=== PATIENT | female | born 1960 | race Caucasian/White ===

== ENCOUNTER → 2021-07-30 10:03 | Outpatient (CLI) | payer MEDICARE, MEDICAID, SELFPAY ==
--- NOTE | 2021-07-30 | DI.RAD.S_ITS ---
PROCEDURE: FL JOINT INJECTION LARGE LT INDICATIONS: Unilateral primary osteoarthritis, left hip COMPARISON: None. TECHNIQUE: The indications, alternatives, benefits, risks, and complications of the procedure were explained to the patient. Written informed consent was obtained and placed in the chart. The patient was placed in an appropriate position on the fluoroscopy table, and a site was chosen for percutaneous access under fluoroscopic guidance. The site was prepped and draped in a sterile fashion. Local anesthetic was administered using a 1% lidocaine solution. A hypodermic or spinal needle was then used to access the symptomatic joint. Intra-articular location of the needle tip was confirmed by injecting a small amount of contrast, followed by steroid administration. The needle was then withdrawn, and a bandage applied to the puncture site. FINDINGS: Joint injected: Left hip Medications injected: 1 mL of 40 mg/mL Kenalog and 3 mL 0.5% Ropivacaine mixture. Patient's pain before injection: 3 out of 10. Patient's pain after injection: 0 out of 10. Complications: None. IMPRESSION: Successful fluoroscopically guided administration of steroid and anaesthetic solution into the left hip joint. Dictated by: Essence Love MD, PhD on 07/30/2021 at 11:49 Approved by: Essence Love MD, PhD on 07/30/2021 at 11:50
== END ==
PROVIDERS: PCP Registered Nurse; Referring Provider Counselor Mental Health; Visit Provider Counselor Mental Health
DX: M16.12 Unilateral primary osteoarthritis, left hip (principal)
CPT/HCPCS: 20610; 77002

== ENCOUNTER → 2021-09-15 13:44 | Outpatient (CLI) | payer MEDICARE, MEDICAID, SELFPAY ==
--- NOTE | 2021-09-15 13:50 | DI.RAD.S_ITS ---
PROCEDURE: XR LUMBAR SPINE MIN 4V INDICATIONS: BACK PAIN TECHNIQUE: 5 views of the lumbar spine were acquired, including bilateral oblique views. COMPARISON: None. FINDINGS: Bones: 5 nonrib-bearing vertebrae are present. Grade 1 anterolisthesis of L5 on S1. Disc space height loss at L5-S1. Small vertebral body osteophytes. No vertebral body compression fractures. No suspicious bony lesions. Right hip arthroplasty. Moderate to severe joint space narrowing at the left hip. Soft tissues: Overlying bowel gas pattern is normal. No suspicious soft tissue calcifications. Oblique images: Bilateral L5 pars defect. IMPRESSION: Bilateral L5 pars defect. Grade 1 anterolisthesis. Mild degenerative change elsewhere in the lumbar spine. Moderate to severe left hip DJD. Dictated by: Crow Cronin M.D. on 09/15/2021 at 14:21 Approved by: Crow Cronin M.D. on 09/15/2021 at 14:24
== END ==
PROVIDERS: PCP Registered Nurse; Referring Provider Physical Medicine & Rehabilitation; Visit Provider Physical Medicine & Rehabilitation
DX: M43.17 Spondylolisthesis, lumbosacral region (principal); M47.816 Spondylosis without myelopathy or radiculopathy, lumbar region; M16.0 Bilateral primary osteoarthritis of hip; M54.9 Dorsalgia, unspecified; E66.01 Morbid (severe) obesity due to excess calories; Z68.41 Body mass index [BMI] 40.0-44.9, adult; Z72.0 Tobacco use; Z96.641 Presence of right artificial hip joint
CPT/HCPCS: 72110; 99214

== ENCOUNTER → 2021-10-01 10:24 | Outpatient (CLI) | payer MEDICARE, MEDICAID, SELFPAY ==
--- NOTE | 2021-10-01 | DI.CT.S_ITS ---
PROCEDURE: CT LUMBAR SPINE WO CON INDICATIONS: SPONDYLOLISTHESIS, LUMBAR REGION TECHNIQUE: Helical axial CT of the lumbar spine was obtained without contrast and reformatted in multiple planes utilizing a Robospine protocol. Radiation dose reduction was achieved utilizing automated exposure control and/or adjustment of the dose parameters according to patient's size. COMPARISON: None. FINDINGS: Image quality: Excellent. Bones: There is normal bony alignment. No acute vertebral body compression fractures. No suspicious lytic or blastic bony lesions. Bilateral L5 pars defects noted. At L3-4, there is disc space narrowing and circumferential disc bulge with mild central stenosis. Mild left and right foraminal stenosis noted as well. At L4-5, disc height is preserved. Circumferential disc bulge results in mild central stenosis. Mild facet joint hypertrophy present. Moderate bilateral foraminal stenosis. At L5-S1, there is grade 2 anterior spondylolisthesis. Severe disc space narrowing, degenerative endplate sclerosis and vacuum disc phenomena noted. No central stenosis. Severe left and right foraminal stenosis present. At the remaining levels, no central or foraminal stenosis present. IMPRESSION: 1. Grade 2 isthmic spondylolisthesis at L5-S1 results in severe bilateral foraminal stenosis. 2. Degenerative disc disease and arthropathy results in moderate bilateral foraminal stenosis at L4-5 Approved by: Raj Fernandez M.D. on 10/01/2021 at 11:29 PATIENT NAME: NAJMA ESCAMILLAKatherine : 1960 EXAM DATE: 10/01/2021 10:36 ORD. : FLORIDALMA DUBOIS M.D. CC: MODALITY: CT PATIENT TYPE: Out CONTRAST MEDIA: STATION ID: [id number] FLUORO TIME: PATIENT NAME: FAVIAN ESCAMILLAISAURO Chin : 1960 EXAM DATE: 10/01/2021 10:36 ORD. DRKatherine: FLORIDALMA DUBOIS M.D. CC: MODALITY: CT PATIENT TYPE: Out CONTRAST MEDIA: STATION ID: [id number] FLUORO TIME:
[2021-10-01 11:28] LABS: Add Manual Diff / Slide Review NO; Basophils Absolute Auto 0 /uL (0-100); Basophils Percent Auto 0.5 % (0-2); Eosinophils Absolute Auto 100 /uL (0-450); Eosinophils Percent Auto 1.6 % (2-4); Hematocrit 42.8 % (36-46); Hemoglobin 13.8 g/dL (12.0-16.0); Lymphocytes Absolute Auto 2400 /uL (1100-4500); Lymphocytes Percent Auto 27.1 % (25-40); Mean Corpuscular HGB Conc 32.2 % (30-36); Mean Corpuscular Hemoglobin 25.8 PG (26-34); Monocytes Absolute Auto 500 /uL (0-900); Monocytes Percent Auto 5.5 % (3-14); Neutrophils Absolute Auto 5700 /uL (1500-7000); Neutrophils Percent Auto 65.3 % (50-75); Platelet Count 310 X10^3/uL (150-400); Red Blood Cell Count 5.35 X10^6/uL (4.0-5.2); Red Cell Distribution Width 17.7 % (11.6-14.8); White Blood Cell Count 8.8 X10^3/uL (4.5-11.0)
[2021-10-01 11:47] LABS: Hemoglobin A1C% w Est Avg Glu 5.7 % (4.0-6.0)
[2021-10-01 12:22] LABS: BUN Creatinine Ratio 12.9 (6-22); Blood Urea Nitrogen 12 mg/dL (7-17); Calcium 9.2 mg/dL (8.4-10.2); Carbon Dioxide 30 mmol/L (22-32); Chloride 102 mmol/L (98-107); Estimated Glomerular Filt Rate > 60.0 mL/min (>60); Glucose 103 mg/dL (80-110); HEMOLYSIS < 15 (0-50); Potassium 4.6 mmol/L (3.4-5.1); Sodium 138 mmol/L (137-145)
== END ==
PROVIDERS: PCP Registered Nurse; Referring Provider Orthopaedic Surgery Orthopaedic Surgery of the Spine; Visit Provider Orthopaedic Surgery Orthopaedic Surgery of the Spine
DX: Z01.818 Encounter for other preprocedural examination (principal); M43.17 Spondylolisthesis, lumbosacral region; M51.36 Other intervertebral disc degeneration, lumbar region; Z01.812 Encounter for preprocedural laboratory examination; M47.816 Spondylosis without myelopathy or radiculopathy, lumbar region; R73.9 Hyperglycemia, unspecified
CPT/HCPCS: 36415; 72131; 80048; 83036; 85025; 93005

== ENCOUNTER → 2021-11-21 10:52 | Outpatient (CLI) | payer MEDICARE, MEDICAID, SELFPAY ==
[2021-11-21 12:13] LABS: COVID19 -Nasal RAPID Negative (Negative)
== END ==
PROVIDERS: PCP Registered Nurse; Visit Provider Family Medicine Sleep Medicine
DX: Z20.822 Contact with and (suspected) exposure to COVID-19 (principal)
CPT/HCPCS: 87635; C9803

== ENCOUNTER 2021-11-24 10:14 | Inpatient (IN) | payer MEDICARE, MEDICAID, SELFPAY ==
[2021-11-17 08:44] VITALS: BMI 44.1
[2021-11-24] VITALS (18 sets, daily range): BP systolic 94–136; BP diastolic 45–81; PULSE 70–79; RESP 14–20; TEMP 31.7–36.8; O2SAT 91–929; BMI 44.1; BMI 44.6
--- NOTE | 2021-11-24 | DI.RAD.S_ITS ---
PROCEDURE: XR LUMBAR SPINE 2-3V INDICATIONS: L4-5 L5-S1 TLIF TECHNIQUE: 3 views of the lumbar spine were acquired. COMPARISON: [facility], , XR LUMBAR SPINE MIN 4V, 09/15/2021, 13:40. FINDINGS: 2 submitted images demonstrate posterior surgical hardware extending from the L4 through the L5-S1 level which are in expected positions. L5-S1 intervertebral disc spacer also in expected position. IMPRESSION: Posterior fixation hardware at the L3-L4 and L4-L5 level as well as L5-S1 intervertebral spacer. Dictated by: Estevan Ayers [facility] Interpreted: Benjamin Howe MD on 11/24/2021 at 17:03 Approved by: Benjamin Howe M.D. on 11/24/2021 at 18:28
[2021-11-24] MEDS: ACETAMINOPHEN 325 MG TABLET 975 MG PO (10:48)
[2021-11-24] MEDS: LACTATED RINGERS 1,000 ML 42 ML IV ×2 (10:51→15:46)
--- NOTE | 2021-11-24 12:20 | PM.PREOP ---
Pre-operative Note COVID-19 COVID-19 status: Negative Result date/Date tested (Pos, Neg/Pending): 11/23/21 Criteria for continued procedure: Expected advancement of disease process, Possibility delay results in more complex future surgery or treatment, Increased loss of function, Continuing or worsening of significant or severe pain, Deterioration of the patient's condition or overall health and Delay expected to result in less-positive ultimate med/surg outcome Interval Note History & Physical reviewed/Exam performed by Physician: Yes Changes to H&P: No
[2021-11-24] MEDS: ALBUTEROL/IPRATROPIUM 3 ML AMPUL INH (13:01)
--- NOTE | 2021-11-24 13:15 | SUR.OPER ---
Addendum entered by Payton Reyes R.N. 11/24/21 14:11: Gel pads applied between patient's pannus and spinal table rods bilaterally. Original Note: Prone on spine table, head in foam head support, padded chest and pelvic supports, gel pad at knees, lower legs supported by pillows; nipples, genitalia and toes free of pressure, arms secured on foam padded arm boards at <90 degrees abduction. Tape over blanket at thigh secured to table.
[2021-11-24] MEDS: CEFAZOLIN 2 GM/20 ML SYRINGE 3 GM IV (13:57)
[2021-11-24] MEDS: BUPIVACAINE 0.25% (PF) 30 ML, EPINEPHrine 0.3 MG INJ (14:27)
[2021-11-24] MEDS: BUPIVACAINE LIPOSOME 266 MG/20 ML VIAL INJ (16:47)
--- NOTE | 2021-11-24 16:59 | PM.OP.1 ---
Operative Date/Time/Diagnoses Date of procedure: 11/24/21 Time of procedure: 12:30 Pre-op diagnosis: 1. L5-S1 spondylolisthesis 2. L4-5, L5-S1 spinal stenosis Post-op diagnosis: same Procedure & Clinicians Procedure: 1. L5-S1 Postero-lateral and posterior interbody fusion 2. L5-S1 interbody cage placement. 3. L4-5 posterolateral fusion 4. L4-5, L5-S1 decompressive laminectomy with bilateral facetecomies 5. L4-5, L5-S1 Posterior segmental instrumentation 6. Primrose of bone marrow from iliac crest 7. Utilization of microsurgical technique and operating microscope 8. Utilization of robotic assisted navigation Same procedure as scheduled: Yes Indications: Patient has been having chronic back pain and worsening lumbar radiculopathy. Patient failed multiple conservative management with worsening pain weakness and numbness in her lower extremity. Patient has been having difficulty performing activity of daily living. After discussing risks benefits of treatment options, patient elected proceed with surgery. Surgeon: Valdemar Jimenez [facility] Winder: Awilda Nevarez Click Yes if Unassisted: No Anesthesia Type: General Operative Notes Closure Type: primary Specimen(s): none sent Prosthetic devices, grafts, tissues, transplants, or devices: Globus CREO MIS screws, Rise cages Applied: catheter Estimated Blood Loss (mL): 100 Blood products transfused: none Procedure in detail: Patient was seen in the preoperative area. Risks and benefits of the surgery was discussed with the patient. Informed consent was obtained from the patient and placed in the chart. Surgical site was marked. Patient was taken to the operative room. General anesthesia was administered. Prophylactic antibiotic was given to the patient less than 30 min before the incision was made. Patient was placed into a prone position on the Chaitanya table. Patient's back was then prepped and draped in the sterile fashion. Time-out was performed at this time. After patient was prepped and draped, patient's PSIS was palpated and marked bilaterally. Small 1 cm incision was made over the PSIS for placement of the reference probes. Two trocar was placed into the PSIS 1 on each side. The reference probe was attached to the trocar of the reference apparatus. At this time the C-arm imaging was used to confirm AP and lateral of L4-L5, L5-S1 vertebrae and merged the C-arm imaging using the [employer] robotic navigation system with the CT of the lumbar spine. After successful merging was completed and confirmed, skin marker was used to sarah beth out the skin incision using the [employer] robotic arm. Bilateral incision was made at this time. Pre templated trajectory was used and guided using the [employer] robotic navigation system for bilateral L4, L5, S1 pedicle screw placement. This was done by using the robotic arm to guide the high-speed bur to make a cortical entry point. Next a drill was placed also using the robotic arm and guided using the navigation system drilling partially through bilateral L4, L5 and S1 pedicles. Next L4, L5, S1 pedicle screws it was pre templated and measured was placed onto the power drivers license examiner and inserted into the pedicles bilaterally. After all 6 screws were placed C-arm imaging was taken of both AP and lateral to confirm the placement. Excellent placement of the screws were confirmed and a matched precisely with the pre planned screw placement using the navigation system. MARs retractor was inserted using [employer]oft[employer] guidence. Globus MARS retractors was placed inside the incision and docked onto the L4 and L5 lamina. Using microsurgical technique and operating microscope, a L4, L5 laminectomy and L4-5, L5-S1 facetectomy was performed using a Kerrison rongeur. Patient was found have severe lateral recess and neural foramen stenosis which was fully decompressed after the laminectomy facetectomy. More than 75% of the facets were removed during the process of decompression rendering L4-5, L5-S1 level grossly unstable and required a fusion procedure at the same time. The disc space at L5-S1 was identified, and a total diskectomy was performed at L5-S1 level. The endplates were decorticated using a rasp and shaver. The total diskectomy and decortication was performed at L5-S1 level in order to to accomplish a L5-S1 fusion. The local bone from the laminectomy and facetectomy was saved for local bone grafting. After the total diskectomy and decortication was completed, Trifecta bone graft material was combined with local bone that was harvested earlier. At this time, a separate skin is incision was made over the iliac crest. A Jamshidi needle was inserted into the iliac crest through a separate skin incision. 5 cc of bone marrow aspiration was obtained through the separate skin incision using a Jamshidi needle from the iliac crest. The bone marrow aspiration was combined with local bone and the Trifecta bone grafting material. The bone grafting material was placed into the L5-S1 interbody space along with a expandable cage. The cage was expanded to its maximum height using the torque limiting screwdriver. The disc preparation as well as the cage insertion were also performed under navigation guidance. After the cage was placed, AP and lateral C-arm imaging was taken to confirm placement of the cage and excellent position was confirmed. Globus MARS retractor was inserted and docked onto the L4-5, L5-S1 posterolateral gutter on the right side. Using the power drill, posterior-lateral decortication was performed at L4-5, L5-S1 level until bleeding cortical bone was identified. The remaining bone grafting material was placed into the L4-5, L5-S1 posterior lateral gutter he order to accomplish posterolateral fusion at the L4-5, L5-S1 level. At this time the tulips were attached to the L4, L5, S1 pedicle screw shanks. After measuring the length of the rods, they were inserted into the tulips of the pedicle screws and locked in place using locking caps and torque limiting screwdriver bilaterally. Total 6 caps and 2 titanium rods was used in order to complete the posterior instrumentation construct. The build in reducing threads were used on the towers for the pedicle screws. The L5-S1 spondylolisthesis was appropriately reduced and stabilized using the hardware combination. After all the hardware was placed, and confirmed with AP and lateral C-arm imaging, the wound was then irrigated with sterile normal saline and packed with Ray-Karl gauze for 3 min to accomplish hemostasis. After the gauze was removed the deep fascia was closed with #1 Vicryl suture. The subcutaneous layer was closed with 2-0 Vicryl. The skin was closed with skin debbie. Patient tolerated the procedure well. There were no complications. Neuro monitoring system was used to monitor patient's neurologic status throughout entire procedure. There was no disturbance of the neural monitoring signals throughout the case. Due to patient's chronic COPD, he was recommended by Anesthesia patient to be admitted to the ICU for close monitoring of respiratory status. Patient was stable and had no medical or surgical issues throughout entire procedure. Therapy is consulted to give patient respiratory treatment during hospital stay. Complications: none Post-operative Condition: stable Disposition: PACU Plan for aftercare: Admit to inpatient hospital
[2021-11-24] MEDS: ALBUTEROL 2.5 MG/3 ML NEB (ADULT) INH (17:43)
[2021-11-24] MEDS: HYDROMORPHONE 2 MG INJ IV (17:55)
[2021-11-24] MEDS: hydrOXYzine 50 MG/ML INJ 25 MG IM (17:55)
[2021-11-24] MEDS: OXYCODONE IR 5 MG TABLET PO (18:01)
--- NOTE | 2021-11-24 20:31 | DI.RAD.S_ITS ---
PROCEDURE: XR CHEST 1V INDICATIONS: Shortness of breath post-op TECHNIQUE: One view of the chest was acquired. COMPARISON: [facility], CT, CT LUMBAR SPINE WO CON, 10/01/2021, 10:36. FINDINGS: Surgical changes and devices: Left pacemaker with right atrial and right ventricular leads. Lungs and pleura: Prominent interstitial markings. Hazy opacity at the left lung base. Low lung volumes. No pleural effusions or pneumothorax. Mediastinum: Mediastinal contours appear normal. Heart size is at the upper limits of normal. Bones and chest wall: No suspicious bony lesions. Overlying soft tissues appear unremarkable. IMPRESSION: Low lung volumes. Prominent interstitial markings and hazy opacity at the left lung base. Favor atelectasis. Pulmonary edema could have a similar appearance. Dictated by: Crow Cronin M.D. on 11/24/2021 at 23:20 Approved by: Crow Cronin M.D. on 11/24/2021 at 23:22
[2021-11-24] MEDS: SODIUM CHLORIDE 0.9% 1,000 ML 100 ML IV (20:33)
[2021-11-24 22:02] LABS: PCO2 ABG 71.2 mmHg (35-45)
[2021-11-24 22:03] LABS: HCO3 ABG 31 mmol/L (22-26); Oxygen Saturation ABG 96 % (95-100); PO2 ABG 100 mmHg (80-100); TCO2 ABG 33 mmol/L (21-31); pH ABG 7.24 (7.35-7.45)
[2021-11-24 22:04] LABS: Fractionated Inspired Oxygen 58
--- NOTE | 2021-11-24 22:20 | P.TELICUCN_ITS ---
History of Present Illness Consult details Chief complaint: TLIF *OPB* :: This patient was seen via real time interactive two-way audiovisual telecommunication. Narrative: Patient is a 61F with a PMH of COPD (not on home O2), Tobacco Abuse, Obesity and Spinal stenosis who underwent a spinal stenosis today with Orthopedic Surgery. No complications per Operative report. Patient was transferred to the ICU following surgery due to her history of COPD. Arrived on NC but per RN, desaturations into the 70s thus was placed on a NRB. In PACU, prior to ICU arrival, patient received Oxy and Dilaudid. RN noted that bedside ETCO2 in the 50s-60s. Per patient, she reports no pain at this time. No chest pain or shortness of breath. Limited history, patient appears slightly altered on exam. [facility] Medical History Chronic back pain COPD (chronic obstructive pulmonary disease) CRPS (complex regional pain syndrome) Current every day smoker Degenerative joint disease (DJD) of hip Morbid obesity due to excess calories Pacemaker (07/29/17) Rheumatoid arthritis Spondylolisthesis at L5-S1 level Tobacco abuse Surgical History History of ankle surgery (07/2017) History of bilateral tubal ligation History of hip surgery (03/2016) History of shoulder surgery (02/2004) History of total right hip arthroplasty Family History Father Congestive heart failure Mother Cancer Social History (Updated 09/08/21 @ 12:27 by Janette Beaulieu LPN) household members: friend(s) Smoking Status: Current every day smoker alcohol intake: current Current Medications Current Medications Medications: Home Medications duloxetine 30 mg capsule,delayed release 30 mg PO BID cap 09/15/21 [History Confirmed 11/24/21] gabapentin 100 mg capsule 100 mg PO BID cap 09/15/21 [History Confirmed 11/24/21] tizanidine 4 mg capsule 4 mg PO BEDTIME 09/15/21 [History Confirmed 11/24/21] fluticasone fur. 100 mcg-umeclid 62.5 mcg-vilant 25 mcg inhalat.powder (Trelegy Ellipta) 1 inh INHALATION DAILY 11/17/21 [History Confirmed 11/24/21] ibuprofen 800 mg tablet 800 mg PO BID 11/17/21 [History Confirmed 11/24/21] Visit Medications (administered) Generic Name Dose Route Start Last Admin Trade Name Manjeet PRN Reason Stop Dose Admin Docusate Sodium 100 mg 11/24/21 21:00 11/24/21 21:25 Docusate 100 Mg Capsule PO Not Given BID MIKEL Duloxetine HCl 30 mg 11/24/21 21:00 11/24/21 21:26 Duloxetine 30 Mg Capsule PO Not Given BID MIKEL Gabapentin 100 mg 11/24/21 21:00 11/24/21 21:26 Gabapentin 100 Mg Capsule PO Not Given BID MIKEL Sodium Chloride 1,000 mls @ 100 mls/hr 11/24/21 19:40 11/24/21 20:33 Normal Saline 0.9% IV 100 mls/hr CONT MIKEL Administration Sennosides 17.2 mg 11/24/21 21:00 11/24/21 21:26 Sennosides 8.6 Mg Tablet PO Not Given BEDTIME MIKEL Tizanidine HCl 4 mg 11/24/21 21:00 11/24/21 21:26 Tizanidine 4 Mg Tablet PO Not Given BEDTIME MIKEL Exam Vital Signs (past 8 hours): - 11/24/21 17:20 11/24/21 17:25 11/24/21 17:30 Temperature 96.9 F L Pulse Rate 71 72 70 Respiratory Rate 18 17 18 Blood Pressure 122/71 115/59 L 122/66 Pulse Oximetry 92 95 95 11/24/21 17:35 11/24/21 17:40 11/24/21 17:50 Temperature Pulse Rate 72 70 73 Respiratory Rate 18 15 18 Blood Pressure 123/65 116/45 L 122/66 Pulse Oximetry 94 95 91 11/24/21 18:05 11/24/21 18:20 11/24/21 18:35 Temperature 96.7 F L 97.2 F L Pulse Rate 70 72 73 Respiratory Rate 15 15 19 Blood Pressure 113/63 136/65 123/61 Pulse Oximetry 91 93 929 H 11/24/21 19:05 11/24/21 19:26 11/24/21 21:15 Temperature 97.6 F Pulse Rate 76 79 Respiratory Rate 16 18 Blood Pressure 131/60 126/81 105/58 L Pulse Oximetry 92 92 Fraction of Inspired Oxygen 50 Oxygen Delivery Method Simple Mask Oxygen Flow Rate 6 Narrative Exam Narrative: Limited exam given Tele-evaluation Const Other: Awake but sleepy Resp Other: Mild tachypnea, shallow resparations. RT noted coarse breath sounds bilaterally but no miguelito wheezing. Cardio Other: RRR. No significant extremity edema. Neuro Other: Able to follow commands but appears sleepy. Able to range UE and LE. RN notes neurovascularly intact in LE. Objective Labs Labs: Laboratory Results - last 24 hr 11/24/21 20:55 ABG pH 7.24 L* ABG pCO2 71.2 H* ABG pO2 100 ABG HCO3 31 H ABG Total CO2 33 H ABG O2 Saturation 96 ABG Base Excess 3.0 H FiO2 58 Assessment & Plan Assessment & Plan narrative: 61F with COPD, Tobacco Abuse admitted following spinal fusion for respiratory monitoring 1. Acute (on chronic? Hypoxic, Hypercarbic Respiratory Failure. History of COPD Previous labs with elevated bicarb, suspect chronic CO2 retention. ABG in [place] with pH 7.23 and acute hypercarbia - likely due to atelectasis, positioning, opiods/poor resp effort. - Start BiPAP now. Target O2 sat 88-92%. Target TVs of 6-8 cc/kg of IBW. Repeat ABG 1 hour after BiPAP initiated - PRN nebs. Continue home nebs. - Position with HOB elevated - Cautious with sedatives/opiods given slight AMS - Stat CXR 2. Acute Encephalopathy Most likely due to opiods, hypercarbia. Patient is able to follow commands - Cautious with opiods, sedatives 3. History of Spinal Stenosis s/p Spinal Fusion - Orthopedic Surgery recs 4. Prophylaxis - SCDs. DVT PPx when appropriate from Ortho perspective Would restart diet in morning if mental status improved, off BiPAP and then hold mIVFs. Time Spent With Patient Critical Care time: I spent a total of [] minutes of critical care time on this patient's care today; this time is exclusive of procedural time.
[2021-11-24] MEDS: CEFAZOLIN 2 GM/20 ML SYRINGE IV (23:06)
[2021-11-25] VITALS (8 sets, daily range): BP systolic 93–120; BP diastolic 51–62; PULSE 77–87; RESP 20–33; TEMP 36.5–37.1; O2SAT 87–93
[2021-11-25] MEDS: NICOTINE 14 PATCH 14 MG TOP ×2 (02:29→13:35)
--- NOTE | 2021-11-25 04:39 | PC.NURSE ---
Arrived in ICU 227 @ 1930 per bed from PACU awake and alert MAEW with equal strength. Papa pedal pulses bounding. Small amount of bright red blood noted on surgical dressing. Initally O2 per simple face mask @ 6L. VSS. Pt oriented to environment. Shortly after arrival, she became somnilent and needed prompting to take deep breaths. After contacting teleintensivist, Pt placed on bipap. Pt tolerated bipap for approximately 1 hr then refused to reapply. Placed on nasal cannula with etco2 monitor with goal of SPO2 88-92. She has been fully awake and alert since taking off the bipap. Surgical dressing saturated with BRB, reinforced with ABD Dressing. Moves side to side independently, instructed not to twist torso.
[2021-11-25 04:56] LABS: Hematocrit 36.5 % (36-46); Hemoglobin 11.8 g/dL (12.0-16.0)
[2021-11-25] MEDS: CEFAZOLIN 2 GM/20 ML SYRINGE IV (06:45)
[2021-11-25] MEDS: SODIUM CHLORIDE 0.9% 250 ML 21 ML IV (06:45)
--- NOTE | 2021-11-25 07:31 | P.PN_ITS ---
Subjective Subjective Date Patient Seen: 11/25/21 Time Patient Seen: 07:32 Interval history: Pain since pain is moderate. Denies fever chills. No nausea vomiting. Exam Vital Signs (past 8 hours): - 11/25/21 02:00 Temperature 97.7 F Pulse Rate 77 Respiratory Rate 21 Blood Pressure 105/57 L Pulse Oximetry 93 Fraction of Inspired Oxygen 50 Oxygen Delivery Method Nasal Cannula,BiPAP Oxygen Flow Rate 2 Narrative Exam Narrative: 61-year-old female resting comfortably in bed in no apparent distress. Scant drainage on the dressing. Motor functions intact bilateral lower extremities. Sensation grossly intact to light touch bilateral lower extremities. Const General: cooperative Nutritional Appearance: obese (BMI 44) Orientation: alert and oriented x3 Resp Effort & Inspection: normal respiratory effort and able to speak in complete sentences Objective Imaging Chest x-ray: Radiologist's impression: Chest x-ray for November 24, 2021 per radiology report shows low lung volumes. Prominent interstitial markings and he COPD city at the lung base on the left. Favor atelectasis. Pulmonary edema could have a similar appearance. Labs Result Diagrams: 11/25/21 04:40 Labs: Laboratory Results - last 24 hr 11/24/21 11/25/21 20:55 04:40 Hgb 11.8 L Hct 36.5 ABG pH 7.24 L* ABG pCO2 71.2 H* ABG pO2 100 ABG HCO3 31 H ABG Total CO2 33 H ABG O2 Saturation 96 ABG Base Excess 3.0 H FiO2 58 PFSH Medical History Chronic back pain COPD (chronic obstructive pulmonary disease) CRPS (complex regional pain syndrome) Current every day smoker Degenerative joint disease (DJD) of hip Morbid obesity due to excess calories Pacemaker (07/29/17) Rheumatoid arthritis Spondylolisthesis at L5-S1 level Tobacco abuse Surgical History History of ankle surgery (07/2017) History of bilateral tubal ligation History of hip surgery (03/2016) History of shoulder surgery (02/2004) History of total right hip arthroplasty Family History Father Congestive heart failure Mother Cancer Social History household members: friend(s) Smoking Status: Current every day smoker alcohol intake: current Assessment & Plan Post-op Postoperative Procedures: Procedures Operation Date: 11/24/21 12:15 Actual Procedure Side Surgeon p L4-5, L5-S1 TLIF w. posterior instrumentation - Robot Valdemar Jimenez MD Postoperative day: 1 Postoperative status narrative: Stable status post L5-S1 fusion Tele marketing mgr consulted yesterday evening due to patient desaturation into the 70s Postoperative plan: routine post-op care and ambulate Postoperative plan narrative: Mobilize with physical therapy, limit bending, twisting, lifting Multimodal pain management with caution using opioids secondary to desaturation Tele marketing mgr following for acute possibly on chronic respiratory failure with history of COPD, acute encephalopathy -patient started on BiPAP with target O2 saturation 88-92%, as needed nebs cautious with sedative/opiates Disposition to be determined Quality VTE Deep Vein Thrombosis/Pulmonary Embolism Present on Admission: Yes
[2021-11-25] MEDS: DOCUSATE 100 MG CAPSULE PO ×2 (08:58→20:27)
[2021-11-25] MEDS: DULOXETINE 30 MG CAPSULE PO ×2 (08:58→20:27)
[2021-11-25] MEDS: OXYCODONE IR 5 MG TABLET 10 MG PO ×3 (08:58→20:27)
[2021-11-25] MEDS: GABAPENTIN 100 MG CAPSULE PO ×2 (08:58→20:27)
--- NOTE | 2021-11-25 09:09 | P.TELICUPN_ITS ---
Subjective Subjective :: This patient was seen via real time interactive two-way audiovisual telecommunication. VBG pending, no events opvernight. Current Medications Current Medications Medications: Home Medications duloxetine 30 mg capsule,delayed release 30 mg PO BID cap 09/15/21 [History C onfirmed 11/24/21] gabapentin 100 mg capsule 100 mg PO BID cap 09/15/21 [History Confirmed 11/24/21] tizanidine 4 mg capsule 4 mg PO BEDTIME 09/15/21 [History Confirmed 11/24/21] fluticasone fur. 100 mcg-umeclid 62.5 mcg-vilant 25 mcg inhalat.powder (Trelegy Ellipta) 1 inh INHALATION DAILY 11/17/21 [History Confirmed 11/24/21] ibuprofen 800 mg tablet 800 mg PO BID 11/17/21 [History Confirmed 11/24/21] Visit Medications (administered) Generic Name Dose Route Start Last Admin Trade Name Freq PRN Reason Stop Dose Admin Docusate Sodium 100 mg 11/24/21 21:00 11/25/21 08:58 Docusate 100 Mg Capsule PO 100 mg BID MIKEL Administration Duloxetine HCl 30 mg 11/24/21 21:00 11/25/21 08:58 Duloxetine 30 Mg Capsule PO 30 mg BID MIKEL Administration Gabapentin 100 mg 11/24/21 21:00 11/25/21 08:58 Gabapentin 100 Mg Capsule PO 100 mg BID MIKEL Administration Sodium Chloride 1,000 mls @ 100 mls/hr 11/24/21 19:40 11/25/21 06:28 Normal Saline 0.9% IV 0 mls/hr CONT MIKEL Infusion Sodium Chloride 250 mls @ 21 mls/hr 11/25/21 06:41 11/25/21 06:45 Normal Saline 0.9% IV 21 mls/hr Q24H PRN Administration Flush Non-Formulary Medication 1 inhalation 11/25/21 09:00 11/25/21 09:02 [id number] [Trelegy Ellipta] INH Not Given DAILY MIKEL Oxycodone HCl 10 mg 11/24/21 19:40 11/25/21 08:58 Oxycodone Ir 5 Mg Tablet PO 10 mg Q3HR PRN Administration Pain, Severe (7-10) Sennosides 17.2 mg 11/24/21 21:00 11/24/21 21:26 Sennosides 8.6 Mg Tablet PO Not Given BEDTIME MIKEL Tizanidine HCl 4 mg 11/24/21 21:00 11/24/21 21:26 Tizanidine 4 Mg Tablet PO Not Given BEDTIME MIKEL Objective Labs Result Diagrams: 11/25/21 04:40 Labs: Laboratory Results - last 24 hr 11/24/21 11/25/21 20:55 04:40 Hgb 11.8 L Hct 36.5 ABG pH 7.24 L* ABG pCO2 71.2 H* ABG pO2 100 ABG HCO3 31 H ABG Total CO2 33 H ABG O2 Saturation 96 ABG Base Excess 3.0 H FiO2 58 Exam Vital Signs (past 8 hours): - 11/25/21 02:00 Temperature 97.7 F Pulse Rate 77 Respiratory Rate 21 Blood Pressure 105/57 L Pulse Oximetry 93 Fraction of Inspired Oxygen 50 Oxygen Delivery Method Nasal Cannula,BiPAP Oxygen Flow Rate 2 Narrative Exam Narrative: surrogate for exam is primary team Quality TeleICU VTE Deep Vein Thrombosis/Pulmonary Embolism Present on Admission: Yes Assessment & Plan Assessment & Plan narrative: 1. Acute (on chronic? Hypoxic, Hypercarbic Respiratory Failure. History of COPD Previous labs with elevated bicarb, suspect chronic CO2 retention.? ABG in cardale with pH 7.23 and acute hypercarbia - likely due to atelectasis, positioning, opiods/poor resp effort. - bipap qhs, may need more often depending on vbg - PRN nebs. Continue home nebs. - Position with HOB elevated - Cautious with sedatives/opiods given slight AMS 2. Acute Encephalopathy Most likely due to opiods, hypercarbia. 3. History of Spinal Stenosis s/p Spinal Fusion - Orthopedic Surgery recs 4. Prophylaxis - SCDs. DVT PPx when appropriate from Ortho perspective Time Spent With Patient Critical Care time: I spent a total of [] minutes of critical care time on this patient's care today; this time is exclusive of procedural time.
--- NOTE | 2021-11-25 10:22 | PT.IIE ---
Current Diagnoses Spondylolisthesis, lumbar region (11/24/21) Spinal stenosis, lumbar region with neurogenic claudication (11/24/21) Surgery Performed Operation Date: 11/24/21 12:15 Actual Procedures p L4-5, L5-S1 TLIF w. posterior instrumentation - Robot - Valdemar Jimenez MD Medical History (Last Reviewed 11/25/21 @ 07:33 by Nacho Nails PA-C) Chronic back pain COPD (chronic obstructive pulmonary disease) CRPS (complex regional pain syndrome) Current every day smoker Degenerative joint disease (DJD) of hip Morbid obesity due to excess calories Pacemaker (07/29/17) Rheumatoid arthritis Spondylolisthesis at L5-S1 level Tobacco abuse Physical Therapy Inpatient Evaluation/Re-Eval M1 PT/OT-IP Prior Functional Status Start: 11/25/21 09:03 Freq: NEEDED Status: Active Protocol: Document 11/25/21 10:22 AW (Rec: 11/25/21 10:57 AW [id number]) Medical Review Prior Functional Status Medical History Reviewed Yes Communication WNL. Pt is an effective verbal communicator. Mobility and Gait Pt uses a FWW for household mobility and limited distances in the community. She is limited primarily by pain and weakness. Pt has a power scooter she uses to go check the mail. Activities of Daily Living and IADL's Pt has been requiring assist to don shoes and socks. She needs assist to get in and out of the shower. She typically rides a motorcycle for transportation but has been unable for several months due to pain. Pt's sister assists with IADL's. Prior Functional Level (Other details) PMH includes BMI 44, COPD, R MATTHEW, R ankle fracture. Social History Household Members friend(s) Living Arrangements Mobile home Number of Floors (Floors) One Floor Number of Stairs To Enter/Railing? Ramped entry Home Environment Standard Height Toilet,Tub/ Shower Home Equipment Front Wheel Walker,Power Wheelchair/Scooter,Bedside Commode,Raised Toilet Seat w/ Armrests,Shower Seat without Backrest,Hand Held Shower,Long Handled Shoe Horn,Supply Manager Employment Status Retired Additional Social History Comment Pt lives with her sister, Gely, who typically helps with IADL's. However, her sister is in [place] with their mother who is very ill. Her return date is unknown. Pt has a supportive neice but she has a full-time job and small children. M2 PT-IP Current Condition Start: 11/25/21 09:03 Freq: NEEDED Status: Active Protocol: Document 11/25/21 10:22 AW (Rec: 11/25/21 10:57 AW [id number]) Physical Therapy Current Condition Current Condition Evaluation Date 11/25/21 Treatment Diagnosis s/p L4-5 L5-S1 TLIF; difficulty in walking Onset Date 11/24/21 M3 PT-IP Subjective Start: 11/25/21 09:03 Freq: NEEDED Status: Active Protocol: Document 11/25/21 10:22 AW (Rec: 11/25/21 10:57 AW [id number]) Subjective Physical Therapy Visit Type Type Initial Evaluation Visit Start Time 09:45 Visit Stop Time 10:22 Total Visit Minutes 37 Physical Therapy Visit Comments Patient Comments Pt is willing to participate with PT Patient Goals Pt is open to rehab options. Therapy Pain Assessment Pain When Pain Assessed During Mobility Pain Present Pain Present Pain Reported Location Lower Back Intensity 4 Scale Used 4/10 at rest; unchanged with mobility Pain Management Techniques Apply Cold,Re-positioning, Timing of Activity with Medications M4 PT-IP Mobility and Gait Start: 11/25/21 09:03 Freq: NEEDED Status: Active Protocol: Document 11/25/21 10:22 AW (Rec: 11/25/21 11:10 AW [id number]) PT-Bed Mobility Assessment Rolling Type of Rolling Log Rolling,Roll to Right Level of Assist Moderate Assistance,1 Person Assistance Supine to Sit Supine to Sit Moderate Assistance,1 Person Assistance,Bedrails Scooting Scooting to Edge of Bed Contact Guard Assistance PT-Transfer Assessment Sit to and From Stand Sit to and from Stand Minimal Assistance,1 Person Assistance,Use of Upper Extremities Equipment Transfer Assistive Device Gait Belt,Front Wheeled Walker Orthotic/Prosthetic Devices or Brace: No Transfers Transfer Destination Chair Transfer Technique Stand Step Pivot Transfer Ability Level of Assist Minimal Assistance,1 Person Assistance,Use of Upper Extremities Comments Mobility Comments Pt was lying in bed as PT arrived. BP 120/62 HR 85 SpO2 93% on 3L/min O2 via NC. PT educated pt on post op precautions and log roll technique. Pt needed mod assist for log roll to sitting EOB. Min A to stand and used FWW to transfer to chair 3 feet away from bedside. Mobility was limited at this encounter by NC and monitoring due to hypercapneic presentation. Pt was able to position herself on the chair and was left with OT for further assesment. Gait Assessment Gait Gait Assistance Required: Minimum Assistance,1 Person Assist Distance (Feet) 3 Assistive Devices Assistive Device Gait Belt,Front Wheeled Walker Orthotic/Prosthetic Devices or Brace: No Gait Deviations General Gait Pattern Antalgic,Decreased Stride Length,Decreased Feet Clearance Factors Limiting Gait Function Factors Limiting Gait Function Decreased Activity Tolerance, Decreased Strength,Limited Range of Motion,Pain,Poor Balance Comments Gait Comments Steps taken during transfer only. Stair Climbing Assessment Comments Stair Climbing Comments Not assessed. Pt has ramped entry at home. PT-Balance Assessment Sitting Balance and Reactions Static Sitting Balance Ability Good Dynamic Sitting Balance Ability Good Standing Balance and Reactions Static Standing Balance Ability Good Dynamic Standing Balance Ability Fair Device Used FWW M5 PT-IP Objective Assessments Start: 11/25/21 09:03 Freq: NEEDED Status: Active Protocol: Document 11/25/21 10:22 AW (Rec: 11/25/21 11:10 AW [id number]) Orientation Orientation/Cognition Level of Alertness Alert Orientation Name,Day of Week,Place, Situation Language Function Ability No Deficits Noted Safety Awareness Understands Safety Issues Memory Description No Deficits Noted Gross Range of Motion Lower Extremity ROM Assessment Within Functional Limits Strength Lower Extremity Strength Assessment Bilaterally Impaired Comments Strength Comments Grossly 4/5 BLE Sensation Assessment Sensation Gross Sensation WNL Muscle Tone Muscle Tone WNL Yes M6 PT-IP Treatment Start: 11/25/21 09:03 Freq: NEEDED Status: Active Protocol: Document 11/25/21 10:22 AW (Rec: 11/25/21 11:10 AW [id number]) Physical Therapy Treatment Education Education Provided Precautions,Weight Bearing Status,Post-Op Packet,Safety Other Treatments Other Treatment Performed Educated pt extensively on post op precautions and PT plan of care. M7 PT-IP Assessment and Plan Start: 11/25/21 09:03 Freq: NEEDED Status: Active Protocol: Document 11/25/21 10:22 AW (Rec: 11/25/21 11:10 AW [id number]) PT Summary Assessment and Plan Potential Rehabilitation Potential Good Status of Condition at Evaluation Evolving Summary Impairments Pain,ROM,Strength,Balance,Bed Mobility,Transfers,Gait, Activity Tolerance Assessment Summary Jyothi is a 61 yo woman seen on POD1 following L4-5 L5-S1 TLIF. She uses a FWW for household and limited community mobility at baseline . She has COPD and has been hypercapneic since surgery. She required mod assist for bed mobility and min assist for transfer at this assessment. She does not have help at home at this time due to her sister being away with their mother for unforseen health concerns. Depending on progress and/or ability to line up help at home, pt may need SNF rehab vs home with assist and home health PT. Will continue to assess. Goals Bed Mobility Goal Standby Assistance Transfer Goal Standby Assistance,Front Wheeled Walker Gait Goal Standby Assistance,Front Wheel Walker Gait Distance 75 Days to Meet Goals 8 Frequency of Treatment Frequency Of Treatment Twice a Day Treatment Plan Physical Therapy Treatment Plan Bed Mobility Training,Transfer Training,Gait Training, Therapeutic Exercise,Balance Retraining,Post Op Education, Discharge Planning,Hot or Cold Pack,Neuromuscular Re-ed Other Recommendations and Next Treatment ask RN to lengthen NC/ Focus monitoring line for mobility; mobility as tolerated Precautions Lumbar Precautions Log Roll,No Twisting,Limit Bending,Lifting Restriction of 10 lbs,Gait Belt above Incisional Area Recommendations To Nursing Amount of Assist Needed 1 Person Assist Discharge Recommendations PT Discharge Recommendations Home with Assistance,Home with / Assist Available,Home Health,SNF Rehab,Home vs SNF Transportation Needs at Discharge Private Vehicle,Wheelchair/ Cabulance
[2021-11-25 10:28] LABS: PCO2 VBG 31.6 mmHg (45-50); pH VBG 7.54 (7.33-7.43)
[2021-11-25 10:29] LABS: HCO3 VBG 27 mmol/L (23-28); Oxygen Saturation VBG 100 % (70-75); PO2 VBG 167 mmHg (35-45); Total CO2 VBG 28 mmol/L (24-29)
--- NOTE | 2021-11-25 10:38 | OT.IP.EVAL ---
Current Diagnoses Spondylolisthesis, lumbar region (11/24/21) Spinal stenosis, lumbar region with neurogenic claudication (11/24/21) Surgery Performed Operation Date: 11/24/21 12:15 Actual Procedures p L4-5, L5-S1 TLIF w. posterior instrumentation - Robot - Valdemar Jimenez MD Past Medical History (Last Reviewed 11/25/21 @ 07:33 by Nacho Nails PA-C) Chronic back pain COPD (chronic obstructive pulmonary disease) CRPS (complex regional pain syndrome) Current every day smoker Degenerative joint disease (DJD) of hip History of ankle surgery (07/2017) History of bilateral tubal ligation History of hip surgery (03/2016) History of shoulder surgery (02/2004) History of total right hip arthroplasty Morbid obesity due to excess calories Pacemaker (07/29/17) Rheumatoid arthritis Spondylolisthesis at L5-S1 level Tobacco abuse Surgical History (Last Reviewed 11/25/21 @ 07:33 by Nacho Nails PA-C) History of ankle surgery (07/2017) History of bilateral tubal ligation History of hip surgery (03/2016) History of shoulder surgery (02/2004) History of total right hip arthroplasty Occupational Therapy Inpatient Evaluation/Re-Eval M1 PT/OT-IP Prior Functional Status Start: 11/25/21 09:03 Freq: NEEDED Status: Active Protocol: Document 11/25/21 10:22 AW (Rec: 11/25/21 10:57 AW [id number]) Medical Review Prior Functional Status Medical History Reviewed Yes Communication WNL. Pt is an effective verbal communicator. Mobility and Gait Pt uses a FWW for household mobility and limited distances in the community. She is limited primarily by pain and weakness. Pt has a power scooter she uses to go check the mail. Activities of Daily Living and IADL's Pt has been requiring assist to don shoes and socks. She needs assist to get in and out of the shower. She typically rides a motorcycle for transportation but has been unable for several months due to pain. Pt's sister assists with IADL's. Prior Functional Level (Other details) PMH includes BMI 44, COPD, R MATTHEW, R ankle fracture. Social History Household Members friend(s) Living Arrangements Mobile home Number of Floors (Floors) One Floor Number of Stairs To Enter/Railing? Ramped entry Home Environment Standard Height Toilet,Tub/ Shower Home Equipment Front Wheel Walker,Power Wheelchair/Scooter,Bedside Commode,Raised Toilet Seat w/ Armrests,Shower Seat without Backrest,Hand Held Shower,Long Handled Shoe Horn,Cutlet Maker Pork Employment Status Retired Additional Social History Comment Pt lives with her sister, Gely, who typically helps with IADL's. However, her sister is in [place] with their mother who is very ill. Her return date is unknown. Pt has a supportive neice but she has a full-time job and small children. M2 OT-IP Current Condition Start: 11/25/21 12:32 Freq: Status: Active Protocol: Document 11/25/21 09:50 [facility] (Rec: 11/25/21 12:48 [facility] [id number]) Occupational Therapy Current Condition Current Condition Evaluation Date 11/25/21 Treatment Diagnosis S/p L4-5, L5-S1 TLIF Diagnosis Onset Date 11/24/21 Post Operative Precautions Lumbar Precautions Log Roll,No Twisting,Limit Bending,Lifting Restriction of 10 lbs,Gait Belt above Incisional Area M3 OT- IP Subjective and Pain Start: 11/25/21 12:32 Freq: Status: Active Protocol: Document 11/25/21 09:50 [facility] (Rec: 11/25/21 12:48 [facility] [id number]) OT- Subjective Occupational Therapy Visit Type Type Initial Evaluation Visit Start Time 09:50 Visit Stop Time 10:38 Total Visit Minutes 48 Occupational Therapy Visit Comments Patient Comments Pt agreed to get up for OT eval. Patient/Caregiver Goals TO go to skilled rehab. OT Pain Assessment Pain When Pain Assessed At Rest Pain Present Pain Present Pain Reported Location Lower Back Intensity 2 Scale Used Numeric (0 - 10) M4 OT- IP ADL's Start: 11/25/21 12:32 Freq: Status: Active Protocol: Document 11/25/21 09:50 [facility] (Rec: 11/25/21 12:48 [facility] [id number]) OT [id number] Comments OT Self-Feeding Comments NOt at meal time. OT ADL-Grooming General Evaluation Grooming Ability Standby Assistance Areas Needing Assistance Retrieving/Set-up of Grooming Items OT ADL-Oral Care General Eval Oral Care Ability Standby Assistance Areas of Assistance Retrieving/Set-Up of Items Comments Oral Care Comments Able to do from the recliner. Educated if standing would be best to spit into a cup to best follow her back precautions. Pt states usually brushes her teeth in the shower. OT ADL-Dressing General Eval Lower Body Dressing Ability Maximum Assistance Comments OT Dressing Comments Able to practice use of shelf drier operator and sock aid for LB dressing needs. OT ADL-Toileting Comments OT Toileting Comments Vivar in place, able to show pt toilet paper aid and talked about bidet /wipes to help increase ease and independence to wipe. OT ADL-Bathing Comments OT Bathing Comments NOt performed. M5 OT- IP IADL's Start: 11/25/21 12:32 Freq: Status: Active Protocol: Document 11/25/21 09:50 [facility] (Rec: 11/25/21 12:48 [facility] [id number]) OT-Instrumental Activities of Daily Living Deficits IADL Deficits Identified Deficits Home Safety Awareness Awareness of Need for Assistance at Home Good Awareness Ability to Problem Solve Emergency Able to Problem Solve Situations Meal Preparation Meal Preparation Caregiver Provides Assist Float Remover Float Remover Caregiver Provides Assist M6 OT- IP Functional Cognition Start: 11/25/21 12:32 Freq: Status: Active Protocol: Document 11/25/21 09:50 [facility] (Rec: 11/25/21 12:48 [facility] [id number]) Cognitive Factors Limiting Selfcare Function Cognitive Ability Level of Alertness Alert Patient Orientation Name,Place,Situation Ability to Follow Commands Able to Follow One Step Commands Cognitive Comments Cognitive Assessment Comments Pt needing initial cues to recall her precautions and education of using the shelf drier operator and sock aid. Pt will benefit from more practice. OT- Vision and Hearing OT- Hearing Assessment OT- Hearing Assessment WFL OT- Vision Assessment Visual Acuity Glasses For Reading M7 OT- IP Mobility and Balance Start: 11/25/21 12:32 Freq: Status: Active Protocol: Document 11/25/21 09:50 [facility] (Rec: 11/25/21 12:48 [facility] [id number]) OT- Bed Mobility Assessment Rolling Type of Rolling Roll to Right Level of Assistance Moderate Assistance Supine to Sit Supine to Sit Assist Moderate Assistance OT-Transfer Assessment Sit to and From Stand Sit to and from Stand Minimal Assistance Transfers Transfer Ability Minimal Assistance Technique Transfer Destination Bed,Chair Devices Transfer Assistive Devices Gait Belt,Front Wheeled Walker Comments Mobility Comments MODA to help get up from supine and ROB with FWW. Only able to transfer at this time due to limited length of hospital tubing. OT- Balance Assessment Sitting Balance and Reactions Static Sitting Balance Ability Good Standing Balance and Reactions Static Standing Balance Ability Fair Comments Other Balance Tests/Deviations/Treatment Pt on HiFLow and took off the : O2 for grooming needs and O2 dropped to 82%. M8 OT- IP Objective Assessments Start: 11/25/21 12:32 Freq: Status: Active Protocol: Document 11/25/21 09:50 [facility] (Rec: 11/25/21 12:48 [facility] [id number]) OT-Muscle Tone Assessment Muscle Tone WNL Yes M9 OT- IP Assessment and Plan Start: 11/25/21 12:32 Freq: Status: Active Protocol: Document 11/25/21 09:50 [facility] (Rec: 11/25/21 12:48 [facility] [id number]) OT Summary Assessment and Plan Potential Rehabilitation Potential Good Analytic Complexity at Evaluation Moderate Summary OT Impairments Pain,Strength,Balance, Functional Mobility,Grooming, Dressing,Toileting,Bathing, Toilet Transfers,Shower Transfers,Activity Tolerance Progress Towards Goals Slow Progress due to Medical Issues Assessment Summary Pt MOD complexity and main barriers are decreased activity tolerance and now on O2, pt will need one person assist for all needs. Pt would greatly benefit from skilled rehab prior to going home in order to get stronger, practice LB equipment for ADl needs. Pt's sister not available to assist anymore as in [place] with their ill mother. Therefore pt needs to be independent for all needs prior to going home. Goals Grooming Goal Independent Dressing Goal Independent Toileting Goal Independent Bathing Goal Independent Toilet Transfer Goal Independent Shower Transfer Goal Independent Patient/Caregiver Education Goal Demonstrate Post-Op Precautions,Demonstrate Energy Conservation and Pacing Days to Meet Goals 15 Frequency of Treatment Frequency Of Treatment Once a Day Treatment Plan OT Treatment Plan ADL Training,Functional Mobility,Patient/Family Education,Discharge Planning Other Treatment Recommendations and Next Stand at sink for grooming Treatment Focus needs with FWW. Discharge Recommendations OT Discharge Recommendations SNF Rehab Transportation Needs at Discharge Wheelchair/Cabulance
--- NOTE | 2021-11-25 13:27 | CM.DANOTE ---
DCP: Case received, EMR reviewed and met with patient. Introduced self and role. Was able to obtain information regarding patient's baseline activity level prior to surgery, and care needs as well. DCP assessment completed with information currently available. Patient is a 61 year old female who admitted yesterday morning to the care of the orthopedic team. PCP: Dr. Martin. Payer: confirmed: Medicare/Medicaid. Patient came to the hospital via private vehicle secondary to having a surgical procedure. Patient had L5-S1 fusion. Patient has history of spinal stenosis. Met with patient in her room. She just finished working with Elia Hunter. She was sitting up in her chair, she had on CPAP. Confirmed that she resides in [place], on [address]. She lives alone. Originally, her sister, Gely Laureano was supposed to assist her, but her mother became ill, and sister can't assist. Patient at her baseline, uses a walker, and does not drive. Her sister has been taking her to appointments. According to P.T. notes, patient does have a power scooter that she uses for short distances. Spoke to patient. She is hoping she can go to rehab, her first preference is [facility]. Confirmed that she is inpatient as of yesterday, and has Medicare. Spoke to Jeanie at [facility], and faxed her the referral. They have beds. Sent referral also to Kimmie at [facility] in case [facility] falls through. Have not yet asked her about vaccination status. P: DCP to continue to follow and work on alf. [facility], and [facility] is reviewing. She would be eligable for alf by , 11-27. Elizabeth Voss, RN/Plant Puller Discharge Planning/Care Management Advanced directive, confirm from FAMILY Start: 11/24/21 22:31 Freq: Q24H Status: Active Protocol: Document 11/24/21 22:45 CW (Rec: 11/24/21 22:47 CW [id number]) Advance Directive, confirm on record Time 22:46 Person contacted patient Copy received No Copy received No Advanced directive available on record No CM Discharge Assessment Start: 11/25/21 13:21 Freq: Status: Active Protocol: Document 11/25/21 13:21 VM (Rec: 11/25/21 13:27 VM [id number]) Discharge Planning Assessment Assigned Manuscripts Curator Elizabeth Voss, MONICA/Plant Puller Advance Directives? No Advance Directives on File No History Provided By Patient,Medical Record Prior Living Arrangements Mobile home Household Members friend(s) Type of transporation used prior to Relies on Others admit Comment Her sister takes her to appointments. Independent with ADL's Yes Is patient alert and oriented? Yes Needs Assistance With Home Chores / Shopping Caregiver for Another No DME Already Rented / Owned FWW / Walker Patient/Family Preference Care Home Facility Barriers to Discharge Yes Comment Sister is caring for patient's mother, she was originally going to stay with patient. Discharge Plan Care Home Facility Transportation Arrangement Facility Referrals Initiated Care Home Whiteboard Updated in Patient Room with Yes name and ext. # of Manuscripts Curator Review Status In Process Next Review Type Continued Stay Review Pre-Anesthesia Assessment Start: 11/17/21 08:44 Freq: Status: Active Protocol: Document 11/17/21 08:44 CAB (Rec: 11/17/21 13:02 CAB [id number]) Pre-Anesthesia Assessment PAC Comment Pt would like a nicotine patch while inpatient PFTs @ [facility] 11/10/21 in surgery folder for dos Patient Information Reviewed Via Phone Assessment Assessment Completed With Patient H&P Completed Within 30 Days Yes Diagnostic Results BMP/CMP,CBC Comment COVID screen @ 11/21/21 Primary Care Provider Isela Martin Medical Clearance Received Yes Seen Specialist in Last 12 Months Yes Specialist Seen Financial Services Sales Representative,Orthopedist Comment PCP clearance 11/13/21 to surgery folder for dos Primary Language Amharic Pai Gow Manager Required No Height 5 ft 8 in Weight 290 lb Body Mass Index (BMI) 44.1 Hearing Ability Normal Visual Assist None Dentition Type Partial- Lower Barriers to Learning None Hx Anesthesia Reactions No Hx Family Anesthesia Reaction No Hx Malignant Hyperthermia No Hx Blood Transfusions No Anesthesia Review Requested Yes: Surgeon requested re: COPD, current smoker Additional comment Two anesthesia reviews for this patient scanned and in surgery folder dos alcohol intake current alcohol intake frequency holidays/special occasions only Smoking Status Current every day smoker Tobacco type cigarettes Smoking packs per day 1 Pain Present Pain Reported Musculoskeletal Symptoms Abnormal Gait,Back Pain, Difficulty Walking,Limited Range of Motion,Muscle Weakness,Numbness,Radiating Pain into Limb,Tingling History of Falling (Recent or History of No ) Patient is completely paralyzed or No completely immobile Prosthesis or Orthotic Device Cane,Front Wheel Walker Mental Status Oriented to own ability Is patient on oxygen? No Does patient have CHAVIRA/SOB Yes: Pt states due to pain Hx Sleep Apnea No Comment Pulmonary function tests in surgery folder Currently Taking a Beta Julienne No Can You Climb a Flight of Stairs Without No SOB Hx SOB Yes: Pt states due to pain, deconditioning Hx Syncope or Dizziness Yes: Pacemaker implanted 2017 Anti-Coagulant Therapy No Has a Financial Services Sales Representative Yes: [facility] [phone] Hx Pacemaker/ICD Yes: Pacer form to surgery folder for dos Pacemaker Rep Required? No Cardiac Clearance Received Yes Comment Cardiac records to surgery folder for dos Diet Type At Home Regular dysphagia No Urinary Catheter Present No Hx Urinary Self Catheterization No Diabetes No HgbA1C 5.7 Date 10/01/21 Patient No Lactating No Hx Drug Resistant Organism No Presence of External or Internal Medical Yes: Right hip/shoulder/ankle Devices Have you had any close contact with No someone diagnosed with COVID-19? Received a COVID vaccine? No Marital Status Single Lives With friend(s) Prior Living Arrangements Mobile home Number of Floors (Floors) One Floor Does the Patient Have Assistance After No: Pt lives with friends but Surgery does not have care at DC set up Patient Discharge Plan Description Return Home Comment Pt advised 2-3 day length of stay per surgeon Feels Safe in Current Environment Yes Been Physically Hurt or Threatened By a No Person in Current Environment Do you have thoughts of harming yourself None or others? Are you currently considering suicide? No Do you have a plan to hurt yourself or No Plan others? Do You Have Any Spiritual Beliefs That No May Affect Your HC Choices? Do You Have Any Cultural Practices That No May Affect Your HC Choices? Comment Jason Who Can We Speak to About Patient's Care Family, friends Identifying Code for Release of Patient Declines to issue Information Health Care Proxy/Next of Kin Gely Jamespkins (sister and brother in-law) Health Care Proxy Phone Number Gely: [phone] Pat: Emergency Contact Name Gely Laureano (sister and brother in-law) Emergency Contact Phone Number Gely: [phone] Pat: Advance Directives? No Power of Cray Fishing Hand No PAC Instructions Durable medical equipment, Medications to take/avoid, Nasal antibiotic,No ETOH/ petroleum product on skin DOS, NPO,Post-op transportation,Pre -surgical wash,Sensory aids, Sturdy shoes/comfortable clothes,Do not bring valuables and remove jewelry
--- NOTE | 2021-11-25 16:09 | PT.IPTN ---
Current Diagnoses Spondylolisthesis, lumbar region (11/24/21) Spinal stenosis, lumbar region with neurogenic claudication (11/24/21) Surgery Performed Operation Date: 11/24/21 12:15 Actual Procedures p L4-5, L5-S1 TLIF w. posterior instrumentation - Robot - Valdemar Jimenez MD Physical Therapy Treatment Note M2 PT-IP Current Condition Start: 11/25/21 09:03 Freq: NEEDED Status: Active Protocol: Document 11/25/21 10:22 AW (Rec: 11/25/21 10:57 AW [id number]) Physical Therapy Current Condition Current Condition Evaluation Date 11/25/21 Treatment Diagnosis s/p L4-5 L5-S1 TLIF; difficulty in walking Onset Date 11/24/21 M3 PT-IP Subjective Start: 11/25/21 09:03 Freq: NEEDED Status: Active Protocol: Document 11/25/21 15:46 KS (Rec: 11/25/21 16:26 KS [id number]) Subjective Physical Therapy Visit Type Type Treatment Note Visit Start Time 15:46 Visit Stop Time 16:09 Total Visit Minutes 23 Number of BOILERMAKER HELPER Visits 1 Physical Therapy Visit Comments Patient Comments Pt is willing to participate with PT Patient Goals Pt is open to rehab options. Therapy Pain Assessment Pain When Pain Assessed During Mobility Pain Present Pain Present Pain Reported Location Lower Back Intensity 5 Scale Used Numeric (0 - 10) Pain Management Techniques Re-positioning,Timing of Activity with Medications M4 PT-IP Mobility and Gait Start: 11/25/21 09:03 Freq: NEEDED Status: Active Protocol: Document 11/25/21 15:46 KS (Rec: 11/25/21 16:26 KS [id number]) PT-Bed Mobility Assessment Rolling Type of Rolling Log Rolling,Roll to Right Level of Assist Moderate Assistance,1 Person Assistance Supine to Sit Supine to Sit Moderate Assistance,1 Person Assistance,Bedrails Sit to Supine Sit to Supine Moderate Assistance,1 Person Assistance,Head of Bed Elevated,Bedrails Scooting Scooting to Edge of Bed Contact Guard Assistance PT-Transfer Assessment Sit to and From Stand Sit to and from Stand Minimal Assistance,1 Person Assistance,Use of Upper Extremities Equipment Transfer Assistive Device Gait Belt,Front Wheeled Walker Orthotic/Prosthetic Devices or Brace: No Transfers Transfer Destination Bed Transfer Technique Pt ambulated w/ FWW Transfer Ability Level of Assist Minimal Assistance,1 Person Assistance,Use of Upper Extremities Comments Mobility Comments Pt in bed upon arrival and agreeable to working w/ therapy. Pt able to recall spinal precautions. On 3L O2 93% upon arrival. Mod A for logroll and sidelying<>sit. CGA for scooting EOB, pts O2 dropped to 83%. Increased O2 to 3.5L and pt recovered to low 90s in ~2 min. Pt sit<> Stand w/ FWW Min A and ambulated ~10 ft w/ FWW CGA. She reported pain and LE weakness and returned to bed. O2 desat to 79% but recovered to low 90s in a few minutes while patient was seated EOB. Mod A for sit<>Sidelying and repositioning in bed. Pt instructed in and performed bilateral ankle pumps, quad sets, and glute sets to promote blood flow and strengthening. Pt left in bed w/ all needs in reach. Gait Assessment Gait Gait Assistance Required: Contact Guard Assist,1 Person Assist Distance (Feet) 10 Assistive Devices Assistive Device Gait Belt,Front Wheeled Walker Orthotic/Prosthetic Devices or Brace: No Gait Deviations General Gait Pattern Antalgic,Decreased Stride Length,Decreased Feet Clearance Factors Limiting Gait Function Factors Limiting Gait Function Decreased Activity Tolerance, Decreased Strength,Limited Range of Motion,Pain,Poor Balance Comments Gait Comments Desat to 79% on 3.5L O2. Pt reports feeling weak. Stair Climbing Assessment Comments Stair Climbing Comments Not assessed. Pt has ramped entry at home. PT-Balance Assessment Sitting Balance and Reactions Static Sitting Balance Ability Good Dynamic Sitting Balance Ability Good Standing Balance and Reactions Static Standing Balance Ability Good Dynamic Standing Balance Ability Fair Device Used FWW M5 PT-IP Objective Assessments Start: 11/25/21 09:03 Freq: NEEDED Status: Active Protocol: Document 11/25/21 10:22 AW (Rec: 11/25/21 11:10 AW [id number]) Orientation Orientation/Cognition Level of Alertness Alert Orientation Name,Day of Week,Place, Situation Language Function Ability No Deficits Noted Safety Awareness Understands Safety Issues Memory Description No Deficits Noted Gross Range of Motion Lower Extremity ROM Assessment Within Functional Limits Strength Lower Extremity Strength Assessment Bilaterally Impaired Comments Strength Comments Grossly 4/5 BLE Sensation Assessment Sensation Gross Sensation WNL Muscle Tone Muscle Tone WNL Yes M6 PT-IP Treatment Start: 11/25/21 09:03 Freq: NEEDED Status: Active Protocol: Document 11/25/21 15:46 KS (Rec: 11/25/21 16:26 KS [id number]) Physical Therapy Treatment Exercises Exercises Ankle Pumps,Gluteal Sets,Quad Sets Education Education Provided Precautions,Weight Bearing Status,Post-Op Packet,Safety Other Treatments Other Treatment Performed Reviewed precautions. M7 PT-IP Assessment and Plan Start: 11/25/21 09:03 Freq: NEEDED Status: Active Protocol: Document 11/25/21 15:46 KS (Rec: 11/25/21 16:26 KS [id number]) PT Summary Assessment and Plan Potential Rehabilitation Potential Good Status of Condition at Evaluation Evolving Summary Impairments Pain,ROM,Strength,Balance,Bed Mobility,Transfers,Gait, Activity Tolerance Assessment Summary Pt limited by pain, weakness, and comorbidities but with good effort this PM. Mod A for logroll and sidelying<>sit, Min A for sit<>stand, and CGA for ~10 ft ambulation w/ FWW. Pt initially on 3L but desat to low 80s after bed mobility and increased to 3.5L for ambulation, but still desat to 79% after 10 ft but recovered in a few minutes and left back on 3L at 93%. She does not have help at home and at this time will require SNF to improve strength, functional mobility, and activity toelrance. Will continue to assess progress. Goals Bed Mobility Goal Standby Assistance Transfer Goal Standby Assistance,Front Wheeled Walker Gait Goal Standby Assistance,Front Wheel Walker Gait Distance 75 Days to Meet Goals 8 Frequency of Treatment Frequency Of Treatment Twice a Day Treatment Plan Physical Therapy Treatment Plan Bed Mobility Training,Transfer Training,Gait Training, Therapeutic Exercise,Balance Retraining,Post Op Education, Discharge Planning,Hot or Cold Pack,Neuromuscular Re-ed Other Recommendations and Next Treatment ask RN to lengthen NC/ Focus monitoring line for mobility; mobility as tolerated Precautions Lumbar Precautions Log Roll,No Twisting,Limit Bending,Lifting Restriction of 10 lbs,Gait Belt above Incisional Area Recommendations To Nursing Amount of Assist Needed 1 Person Assist Discharge Recommendations PT Discharge Recommendations Home with Assistance,Home with 24/7 Assist Available,Home Health,SNF Rehab,Home vs SNF Transportation Needs at Discharge Private Vehicle,Wheelchair/ Cabulance
[2021-11-25] MEDS: hydrOXYzine pamoate 25 MG CAPSULE PO ×2 (17:29→21:39)
--- NOTE | 2021-11-25 17:55 | PC.NURSE ---
Shift Note Patient alert, oriented, and cooperative this shift. Dressing to back reinforced per orders and PA updated on new blood gas results. Denies numbness and tingling. Able to move all extremities and get up to chair and bathroom with walker, gait belt, and 1 person assist. Able to make needs known and reposition self in bed, call light within reach.
[2021-11-25] MEDS: SENNOSIDES 8.6 MG TABLET 17.2 MG PO (20:26)
[2021-11-25] MEDS: TIZANIDINE 4 MG TABLET PO (20:28)
--- NOTE | 2021-11-25 22:25 | P.ICUMDRN_ITS ---
- Date Patient Seen: 11/25/21 Time Patient Seen: 22:26 :: This patient was seen via real time interactive two-way audiovisual telecommunication. Note: Chart reviewed. Patient was sleeping comfortably on camer activation. RN reports that she is intolerant of NIPPV; currently on nasal cannula. No recommendations from teleICU service @ this time. She can be downgraded in AM if programmer developer is uneventful.
[2021-11-26] MEDS: OXYCODONE IR 5 MG TABLET 10 MG PO ×5 (00:29→20:34)
[2021-11-26 00:30] VITALS: BP 107/59; PULSE 74; RESP 23; TEMP 36.9; O2SAT 94
--- NOTE | 2021-11-26 06:54 | PC.NURSE ---
Patient alert and oriented x3. CMS+ to yaya LE. Patient reports that R toes normally appearing purplish, PP+ yaya, with good cap refill. Drsg C,DI to back. Patient able to mobilize with FWW to bathroom with some help getting OOB and return to bed giving some assistance with legs. Patient reminded of back precautions with no twisting or bending. Patient medicated with Oxycodone 10 mg x2 for back pain 7-04/18 with pain reduction to 2/10.
--- NOTE | 2021-11-26 08:34 | PM.PNPO.1 ---
Subjective Subjective Date Patient Seen: 11/26/21 Time Patient Seen: 08:34 Interval history: Patient's pain is been mild to moderate. Denies fever or chills. No nausea vomiting. Patient denies shortness of breath or chest pain. Exam Vital Signs (past 8 hours): Fraction of Inspired Oxygen 50 Oxygen Delivery Method Nasal Cannula Oxygen Flow Rate 3 Narrative Exam Narrative: Pleasant 61-year-old female resting comfortably in bed in no apparent distress. Motor functions intact bilateral lower extremities. Sensation grossly intact to light touch bilateral lower extremities. Const General: cooperative Orientation: alert Resp Effort & Inspection: normal respiratory effort Objective Labs Result Diagrams: 11/25/21 04:40 Labs: Laboratory Results - last 24 hr 11/25/21 10:00 VBG pH 7.54 H VBG pCO2 31.6 L VBG pO2 167 H VBG HCO3 27 VBG Total CO2 28 VBG O2 Saturation 100 H VBG Base Excess 5.0 H PFSH Medical History Chronic back pain COPD (chronic obstructive pulmonary disease) CRPS (complex regional pain syndrome) Current every day smoker Degenerative joint disease (DJD) of hip Morbid obesity due to excess calories Pacemaker (07/29/17) Rheumatoid arthritis Spondylolisthesis at L5-S1 level Tobacco abuse Surgical History History of ankle surgery (07/2017) History of bilateral tubal ligation History of hip surgery (03/2016) History of shoulder surgery (02/2004) History of total right hip arthroplasty Family History Father Congestive heart failure Mother Cancer Social History household members: friend(s) Smoking Status: Current every day smoker alcohol intake: current Assessment & Plan Post-op Postoperative Procedures: Procedures Operation Date: 11/24/21 12:15 Actual Procedure Side Surgeon p L4-5, L5-S1 TLIF w. posterior instrumentation - Robot Valdemar Jimenez MD Postoperative day: 2 Postoperative status narrative: Status post L4-L5 posterolateral fusion, L5-S1 posterolateral and posterior interbody fusion November 24, 2021. Consultation by tele clinical support manager for acute hypoxic, hypercapnic respiratory failure. History of COPD. Patient responding well to current treatment. Postoperative plan narrative: Tele intensivists following and patient responding well to current treatment. Recommendation was to downgrade from ICU this morning if implementation architect is uneventful. Reviewed patient with night nurse patient had uneventful night and will be downgraded. Hospitalist, Dr. Izquierdo will consult on patient. Patient mobilize with physical therapy, limit bending, lifting, twisting Patient is planned caregiver had a family emergency and is no longer available to assist her at home. Patient will need fdc facility placement. Disposition likely fdc facility tomorrow if deemed stable per hospitalist. Quality VTE Deep Vein Thrombosis/Pulmonary Embolism Present on Admission: Yes
[2021-11-26 09:00] VITALS: BP 105/63; PULSE 75; RESP 32; TEMP 36.7; O2SAT 91
--- NOTE | 2021-11-26 09:18 | PT.IPTN ---
Current Diagnoses Spondylolisthesis, lumbar region (11/24/21) Spinal stenosis, lumbar region with neurogenic claudication (11/24/21) Surgery Performed Operation Date: 11/24/21 12:15 Actual Procedures p L4-5, L5-S1 TLIF w. posterior instrumentation - Robot - Valdemar Jimenez MD Physical Therapy Treatment Note M2 PT-IP Current Condition Start: 11/25/21 09:03 Freq: NEEDED Status: Active Protocol: Document 11/26/21 08:55 SP (Rec: 11/26/21 12:49 SP [id number]) Physical Therapy Current Condition Current Condition Evaluation Date 11/25/21 Treatment Diagnosis s/p L4-5 L5-S1 TLIF; difficulty in walking Onset Date 11/24/21 M3 PT-IP Subjective Start: 11/25/21 09:03 Freq: NEEDED Status: Active Protocol: Document 11/26/21 08:55 SP (Rec: 11/26/21 12:49 SP [id number]) Subjective Physical Therapy Visit Type Type Treatment Note Visit Start Time 08:55 Visit Stop Time 09:18 Total Visit Minutes 23 Notes Vitals taken during tx: sit in chair: BP 105/ 63, HR 72, SaO2 93% on 2L SaO2 with mobility: 82-86% cued breath, 87% on 3L mobility, recovery seated rest on 3L 93%, reduced to 2L resting 94%. Number of MOTORCYCLE ENGINE ASSEMBLER Visits 2 Physical Therapy Visit Comments Patient Comments Pt is willing to participate with PT walking in room but just got up and not wanting to do bed mob. Patient Goals Willing to go to rehab to get stronger before returning home . Therapy Pain Assessment Pain When Pain Assessed During Mobility Pain Present Pain Present Pain Reported Location Lower Back Intensity 4 Scale Used Numeric (0 - 10) Description Aching Pain Management Techniques Apply Cold,Distraction,Re- positioning,Timing of Activity with Medications M4 PT-IP Mobility and Gait Start: 11/25/21 09:03 Freq: NEEDED Status: Active Protocol: Document 11/26/21 08:55 SP (Rec: 11/26/21 12:49 SP [id number]) PT-Transfer Assessment Sit to and From Stand Sit to and from Stand Contact Guard Assistance,1 Person Assistance,Use of Upper Extremities Equipment Transfer Assistive Device Gait Belt,Front Wheeled Walker Orthotic/Prosthetic Devices or Brace: No Transfers Transfer Destination Chair Transfer Technique Pt ambulated w/ FWW Transfer Ability Level of Assist Contact Guard Assistance, Minimal Assistance,1 Person Assistance,Use of Upper Extremities Comments Mobility Comments Pt seated in chair at arrival, Sit>stand heavy BUE on chair arms then FWW CGA- Min A cued for quad fac full upright posture. Proceeded gait w/ FWW step over step other side of bed and back to chair (30 ft total) 2 stop stand rests due to decreased strength CG- 5%A, cued slow pacing and breath to increase SaO2 82-84% on 2L, increased 3L improved to 87% (MOTORCYCLE ENGINE ASSEMBLER provided O2/ tele monioring cord mgt) cued breath, pt returned to sit in chair CGA, cued breath SaO2 93 % on 3L within 30 sec. Reduced to 2L as when arrived, maintained 90s. Pt declined further activity due to tiring and SOB, stated did need some help to sit up in bed from nursing, nurse confirmed when asked post tx. Pt had call light and all needs in reach, provided CP at LB per pt request for pain control before left. Gait Assessment Gait Gait Assistance Required: Contact Guard Assist,Minimum Assistance,1 Person Assist Distance (Feet) 30 Assistive Devices Assistive Device Gait Belt,Front Wheeled Walker Orthotic/Prosthetic Devices or Brace: No Gait Deviations General Gait Pattern Antalgic,Decreased Stride Length,Decreased Feet Clearance Factors Limiting Gait Function Factors Limiting Gait Function Decreased Activity Tolerance, Decreased Strength,Limited Range of Motion,Pain, Respiratory Distress Comments Gait Comments Desat to 82-84% on 2L, 87% on 3L, breath and sit rest 93% on 3L, reduced to 2L maintained 90s seated in chair. Pt states still weak and challenge breath recovery. Stair Climbing Assessment Comments Stair Climbing Comments Not assessed. Pt has ramped entry at home. PT-Balance Assessment Sitting Balance and Reactions Static Sitting Balance Ability Good Dynamic Sitting Balance Ability Good Standing Balance and Reactions Static Standing Balance Ability Good Dynamic Standing Balance Ability Fair Device Used FWW M5 PT-IP Objective Assessments Start: 11/25/21 09:03 Freq: NEEDED Status: Active Protocol: Document 11/25/21 10:22 AW (Rec: 11/25/21 11:10 AW [id number]) Orientation Orientation/Cognition Level of Alertness Alert Orientation Name,Day of Week,Place, Situation Language Function Ability No Deficits Noted Safety Awareness Understands Safety Issues Memory Description No Deficits Noted Gross Range of Motion Lower Extremity ROM Assessment Within Functional Limits Strength Lower Extremity Strength Assessment Bilaterally Impaired Comments Strength Comments Grossly 4/5 BLE Sensation Assessment Sensation Gross Sensation WNL Muscle Tone Muscle Tone WNL Yes M6 PT-IP Treatment Start: 11/25/21 09:03 Freq: NEEDED Status: Active Protocol: Document 11/26/21 08:55 SP (Rec: 11/26/21 12:49 SP [id number]) Physical Therapy Treatment Education Education Provided Precautions,Weight Bearing Status,Post-Op Packet,Safety Other Treatments Other Treatment Performed Reviewed precautions, good recall. M7 PT-IP Assessment and Plan Start: 11/25/21 09:03 Freq: NEEDED Status: Active Protocol: Document 11/26/21 08:55 SP (Rec: 11/26/21 12:49 SP [id number]) PT Summary Assessment and Plan Potential Rehabilitation Potential Good Status of Condition at Evaluation Evolving Summary Impairments Pain,ROM,Strength,Balance,Bed Mobility,Transfers,Gait, Activity Tolerance Progress Towards Goals Progressing Toward Goals,Slow Progress due to Pain,Slow Progress due to Activity Tolerance Assessment Summary Pt limited by pain, SOB and weakness but improved mobility distance gait, requires increase SaO2 3L and stand rests for safety during mobility using FWW with cues CG- Min A. She does not have help at home and at this time will require SNF to improve strength, functional mobility, and activity toelrance. Will continue to assess progress. Goals Bed Mobility Goal Standby Assistance Transfer Goal Standby Assistance,Front Wheeled Walker Gait Goal Standby Assistance,Front Wheel Walker Gait Distance 75 Days to Meet Goals 8 Frequency of Treatment Frequency Of Treatment Twice a Day Treatment Plan Physical Therapy Treatment Plan Bed Mobility Training,Transfer Training,Gait Training, Therapeutic Exercise,Balance Retraining,Post Op Education, Discharge Planning,Hot or Cold Pack,Neuromuscular Re-ed Other Recommendations and Next Treatment Assess SaO2 during mobility, Focus progress gait if able, bed mob reassessment assist. Precautions Lumbar Precautions Log Roll,No Twisting,Limit Bending,Lifting Restriction of 10 lbs,Gait Belt above Incisional Area Recommendations To Nursing Amount of Assist Needed 1 Person Assist Discharge Recommendations PT Discharge Recommendations SNF Rehab Transportation Needs at Discharge Private Vehicle,Wheelchair/ Cabulance
[2021-11-26] MEDS: GABAPENTIN 100 MG CAPSULE PO ×2 (09:29→20:34)
[2021-11-26] MEDS: ACETAMINOPHEN 325 MG TABLET 650 MG PO (09:29)
[2021-11-26] MEDS: DULOXETINE 30 MG CAPSULE PO ×2 (09:29→20:34)
[2021-11-26] MEDS: DOCUSATE 100 MG CAPSULE PO ×2 (09:29→20:34)
[2021-11-26] MEDS: NICOTINE 14 PATCH 14 MG TOP (09:30)
[2021-11-26] MEDS: SODIUM CHLORIDE 0.9% FLUSH 10 ML IV ×2 (09:31→20:35)
--- NOTE | 2021-11-26 10:07 | PM.CN ---
History of Present Illness Consult details Date Patient Seen: 11/26/21 Time Patient Seen: 10:00 Chief complaint: TLIF *OPB* Narrative: Ms. Campbell is a 61W with PMH COPD, morbid obesity, pacemaker, active smoker who was an elective surgical admit for spinal stentosis s/p L4-L5 laminectomy who medicine is consulted for COPD. Ms. Campbell states that she has only been recently diagnosed with COPD. She is prescribed Trelegy. She is still an active smoker, started when she was 5 years old, smokes half a pack a day and is trying to quit. For the past few months prior to her surgery she has noted worsening shortness of breath especially with exertion. She has not been prescribed oxygen. She did have PFTs prior to surgery which showed mild obstructive airwaay disease and moderately severe loss of functional aveolar capillary surface with DLCO 52% of expected. She underwent surgery on 11/24 and since then has been monitored in the ICU. Immediately after surgery she was hypoxemic, placed on nasal cannula. She has been unable to fully tolerate overnight NIPPV, and she does not use this at home. It was thought some component of initial hypoxemia was secondary to altered mental status, and staff has been careful with opiates for pain control. Initial ABG was 7.24, with pCO2 of 71.2. Yesterday she had a VBG of 7.54 with pCO2 of 31.6. She has been treated with her home dose of Trelegy and PRN nebulizers. Today she says she feels well. She does not feel more short of breath than her baseline. She does feel short of breath with activity, per nursing she desats to the 80s on oxygen with activity, but recovers well. She has no cough, no phlegm, no lower extremity edema. No chest pain. No fevers/chills. Meds Home Medications and Allergies Home Medications Medication Instructions Recorded Confirmed Type duloxetine 30 mg capsule,delayed 30 mg PO BID cap 09/15/21 11/24/21 History release gabapentin 100 mg capsule 100 mg PO BID cap 09/15/21 11/24/21 History tizanidine 4 mg capsule 4 mg PO BEDTIME 09/15/21 11/24/21 History fluticasone fur. 100 mcg-umeclid 1 inh INHALATION DAILY 11/17/21 11/24/21 History 62.5 mcg-vilant 25 mcg inhalat.powder (Trelegy Ellipta) ibuprofen 800 mg tablet 800 mg PO BID 11/17/21 11/24/21 History Allergies Allergy/AdvReac Type Severity Reaction Status Date / Time meperidine [From Demerol] Allergy Severe Anaphylaxis Verified 11/24/21 16:47 salmon oil Allergy Severe Anaphylaxis Verified 11/24/21 16:47 Review of Systems Review of Systems Narrative: 14 systems reviewed and negative aside from what is noted in HPI Exam Vital Signs (past 8 hours): Fraction of Inspired Oxygen 50 Oxygen Delivery Method Nasal Cannula Oxygen Flow Rate 3 Narrative Exam Narrative: GEN: no acute distress HEENT: moist mucous membranes, PERRL NECK: trachea midline, no JVD CV: regular rate and rhythm, no murmurs PULM: distant breath sounds, otherwise clear, no wheezes, crackles ABD: soft, nontender, nondistended, no organomegaly EXT: warm and well perfused with no edema NEURO: awake, alert, oriented, no focal deficits Objective Labs Result Diagrams: 11/25/21 04:40 Labs: Laboratory Results - last 24 hr 11/25/21 10:00 VBG pH 7.54 H VBG pCO2 31.6 L VBG pO2 167 H VBG HCO3 27 VBG Total CO2 28 VBG O2 Saturation 100 H VBG Base Excess 5.0 H PFSH Medical History Chronic back pain COPD (chronic obstructive pulmonary disease) CRPS (complex regional pain syndrome) Current every day smoker Degenerative joint disease (DJD) of hip Morbid obesity due to excess calories Pacemaker (07/29/17) Rheumatoid arthritis Spondylolisthesis at L5-S1 level Tobacco abuse Surgical History History of ankle surgery (07/2017) History of bilateral tubal ligation History of hip surgery (03/2016) History of shoulder surgery (02/2004) History of total right hip arthroplasty Family History Father Congestive heart failure Mother Cancer Social History household members: friend(s) Tobacco & Substance Use Smoking Status: Current every day smoker alcohol intake: current Assessment & Plan Assessment & Plan narrative: Ms. Campbell is a 61W with PMH COPD, obesity, s/p surgery for spinal stenosis now with acute hypoxemic/hypercarbic respiratory failure. 1. Acute hypoxemic/hypercarbic respiratory failure secondary to COPD and active smoker -per reports DLCO is low with PFTs done prior to surgery -likely a component of active smoking, which with cessation can likely improve DLCO, and also COPD that will remain chronic -no evidence of active COPD exacerbation, pneumonia -chest xray showed possible atelectasis vs mild pulmonary edema -stop IV fluids as patient tolerating diet -ordered IV lasix to see if it improves respiratory symptoms, goal of gentle diuresis -incentive spirometer at bedside -no indication for antibiotics or steroids for now -continue Trelegy and prn albuterol -suspect patient will need oxygen and discharge, and may need this chronically -if prescribed oxygen will need further guidance of dangers of tobacco use -encouraged cessation, patient interested in patch to help quit, ordered for patch here CODE: Full Proxy: Gely Jamespkins, sister I have utilized all available resources to reconcile the patient's home medications Time Spent With Patient Critical Care time: I spent a total of [] minutes of critical care time on this patient's care today; this time is exclusive of procedural time.
[2021-11-26 11:00] VITALS: O2SAT 96
[2021-11-26] MEDS: FUROSEMIDE 20 MG/2 ML VIAL IV (12:15)
--- NOTE | 2021-11-26 12:59 | CM.DPC ---
DCP Cont: Per Ortho PA, pt likely will be stable for d/c tomorrow and may consult with hospitalist to just confirm meds etc.. SW called [facility] admissions and left msg to determine if they can accept pt as their facility is pt's first preference due to location. SW spoke to [facility] admissions and updated that pt did NOT get her COVID vaccinations and they confirm they can still accept pt with quarantine at d/c. SW met bedside with pt and explained role and updated on above and she confirms first preference is [facility] for location but agreeable with [facility] and understands since she did not get COVID vaccinations that there will be a quarantine period at admit. PASRR completed previously and pt likely will need updated COVID swab prior to d/c. Plan: SW to follow closely for return call from [facility] to determine their facility vs [facility] at d/c and updated COVID swab needed. SALOMON Medina
--- NOTE | 2021-11-26 13:37 | OT.IP.TRT ---
Current Diagnoses Spondylolisthesis, lumbar region (11/24/21) Spinal stenosis, lumbar region with neurogenic claudication (11/24/21) Surgery Performed Operation Date: 11/24/21 12:15 Actual Procedures p L4-5, L5-S1 TLIF w. posterior instrumentation - Robot - Valdemar Jimenze MD Occupational Therapy Treatment Note M2 OT-IP Current Condition Start: 11/25/21 12:32 Freq: Status: Active Protocol: Document 11/25/21 09:50 [facility] (Rec: 11/25/21 12:48 [facility] [id number]) Occupational Therapy Current Condition Current Condition Evaluation Date 11/25/21 Treatment Diagnosis S/p L4-5, L5-S1 TLIF Diagnosis Onset Date 11/24/21 Post Operative Precautions Lumbar Precautions Log Roll,No Twisting,Limit Bending,Lifting Restriction of 10 lbs,Gait Belt above Incisional Area M3 OT- IP Subjective and Pain Start: 11/25/21 12:32 Freq: Status: Active Protocol: Document 11/26/21 13:27 [facility] (Rec: 11/26/21 14:29 [facility] [id number]) OT- Subjective Occupational Therapy Visit Type Type Treatment Note Visit Start Time 13:27 Visit Stop Time 13:37 Total Visit Minutes 10 Occupational Therapy Visit Comments Patient Comments Pt requesting to get information of getting a leg bee raiser to assist to help move her LLE while in bed. Patient/Caregiver Goals To go to skilled rehab. OT Pain Assessment Pain When Pain Assessed At Rest Pain Present Pain Present Denied Pain Protocol: Document 11/26/21 13:27 [facility] (Rec: 11/26/21 14:29 [facility] [id number]) OT- Bed Mobility Assessment Rolling Type of Rolling Roll to Right Level of Assistance Moderate Assistance Supine to Sit Supine to Sit Assist Moderate Assistance Sit to Supine Sit to Supine Assist Minimal Assistance OT-Transfer Assessment Sit to and From Stand Sit to and from Stand Contact Guard Assistance, Minimal Assistance Comments Mobility Comments Pt still needing MODA to roll to the right. Pt wanting to get a leg bee raiser to help move her LLE during bed mobility needs. States at this time a device may be hard to use as now having to ensure to do log rolling technique. Had pt try to use gait belt on her LLE and tends to slightly twist and at this time agreed best to stick with log rolling or even use of her right leg to help lift up the LLE into the bed. OT- Balance Assessment Sitting Balance and Reactions Static Sitting Balance Ability Good Standing Balance and Reactions Static Standing Balance Ability Fair M8 OT- IP Objective Assessments Start: 11/25/21 12:32 Freq: Status: Active Protocol: Document 11/25/21 09:50 [facility] (Rec: 11/25/21 12:48 [facility] [id number]) OT-Muscle Tone Assessment Muscle Tone WNL Yes M9 OT- IP Assessment and Plan Start: 11/25/21 12:32 Freq: Status: Active Protocol: Document 11/26/21 13:27 [facility] (Rec: 11/26/21 14:29 [facility] [id number]) OT Summary Assessment and Plan Potential Rehabilitation Potential Good Analytic Complexity at Evaluation Moderate Summary OT Impairments Pain,Strength,Balance, Functional Mobility,Grooming, Dressing,Toileting,Bathing, Toilet Transfers,Shower Transfers,Activity Tolerance Progress Towards Goals Progressing Toward Goals Assessment Summary Pt still on O2 and needing MODA x1 to help get out of bed at this time. Pt will continue to benefit from skilled rehab to work on back precautions for ADL and mobility needs. Pt is very motivated and cooperative. Goals Grooming Goal Independent Dressing Goal Independent Toileting Goal Independent Bathing Goal Independent Toilet Transfer Goal Independent Shower Transfer Goal Independent Patient/Caregiver Education Goal Demonstrate Post-Op Precautions,Demonstrate Energy Conservation and Pacing Days to Meet Goals 14 Frequency of Treatment Frequency Of Treatment Once a Day Treatment Plan OT Treatment Plan ADL Training,Functional Mobility,Patient/Family Education,Discharge Planning Other Treatment Recommendations and Next Stand at sink for grooming Treatment Focus needs with FWW. Discharge Recommendations OT Discharge Recommendations SNF Rehab Transportation Needs at Discharge Wheelchair/Cabulance
--- NOTE | 2021-11-26 15:38 | PT.IPTN ---
Current Diagnoses Spondylolisthesis, lumbar region (11/24/21) Spinal stenosis, lumbar region with neurogenic claudication (11/24/21) Surgery Performed Operation Date: 11/24/21 12:15 Actual Procedures p L4-5, L5-S1 TLIF w. posterior instrumentation - Robot - Valdemar Jimenez MD Physical Therapy Treatment Note M2 PT-IP Current Condition Start: 11/25/21 09:03 Freq: NEEDED Status: Active Protocol: Document 11/26/21 08:55 SP (Rec: 11/26/21 12:49 SP [id number]) Physical Therapy Current Condition Current Condition Evaluation Date 11/25/21 Treatment Diagnosis s/p L4-5 L5-S1 TLIF; difficulty in walking Onset Date 11/24/21 M3 PT-IP Subjective Start: 11/25/21 09:03 Freq: NEEDED Status: Active Protocol: Document 11/26/21 15:23 [place] (Rec: 11/26/21 15:45 [place] [id number]) Subjective Physical Therapy Visit Type Type Treatment Note Visit Start Time 15:23 Visit Stop Time 15:38 Total Visit Minutes 15 Number of DELIVERY PERSON Visits 3 Physical Therapy Visit Comments Patient Comments Pt agreeable to ambulate Patient Goals Willing to go to rehab to get stronger before returning home . Therapy Pain Assessment Pain When Pain Assessed During Mobility Pain Present Pain Present Pain Reported Location Lower Back Intensity 4 Scale Used Numeric (0 - 10) Description Aching Pain Management Techniques Apply Cold,Distraction,Re- positioning,Timing of Activity with Medications M4 PT-IP Mobility and Gait Start: 11/25/21 09:03 Freq: NEEDED Status: Active Protocol: Document 11/26/21 15:23 [facility] (Rec: 11/26/21 15:45 [place] [id number]) PT-Bed Mobility Assessment Rolling Type of Rolling Log Rolling,Roll to Right Level of Assist Minimal Assistance Sit to Supine Sit to Supine Minimal Assistance,1 Person Assistance,Bedrails PT-Transfer Assessment Sit to and From Stand Sit to and from Stand Contact Guard Assistance,1 Person Assistance,Use of Upper Extremities Equipment Transfer Assistive Device Gait Belt,Front Wheeled Walker Orthotic/Prosthetic Devices or Brace: No Transfers Transfer Destination Chair Transfer Technique Pt ambulated w/ FWW Transfer Ability Level of Assist Contact Guard Assistance, Minimal Assistance,1 Person Assistance,Use of Upper Extremities Comments Mobility Comments Pt seated EOB upon arrival on 2.5L O2 94%. Pt sit<>stand w/ FWW CGA and cues for hand placement. She then ambulated ~35 ft in room w/ FWW CGA and cues for upright posture. Pt c /o 4/10 pain w/ ambulation. Upon return to bed pt reported some SOB and O2 84% but quickly recovered to mid 90s upon sitting. Min A for LE elevation and logroll back into bed. Reviewed LE exercises including ankle pumps, quad sets, glute sets, heel slides, and calf stretch. Pt left in bed w/ all needs in reach. Gait Assessment Gait Gait Assistance Required: Contact Guard Assist,Minimum Assistance,1 Person Assist Distance (Feet) 35 Assistive Devices Assistive Device Gait Belt,Front Wheeled Walker Orthotic/Prosthetic Devices or Brace: No Gait Deviations General Gait Pattern Antalgic,Decreased Stride Length,Decreased Feet Clearance Factors Limiting Gait Function Factors Limiting Gait Function Decreased Activity Tolerance, Decreased Strength,Limited Range of Motion,Pain, Respiratory Distress Comments Gait Comments Desat to 84% on 2.5L, quickly recovered to mid 90s upon sitting. Stair Climbing Assessment Comments Stair Climbing Comments Not assessed. Pt has ramped entry at home. PT-Balance Assessment Sitting Balance and Reactions Static Sitting Balance Ability Good Dynamic Sitting Balance Ability Good Standing Balance and Reactions Static Standing Balance Ability Good Dynamic Standing Balance Ability Fair Device Used FWW M5 PT-IP Objective Assessments Start: 11/25/21 09:03 Freq: NEEDED Status: Active Protocol: Document 11/25/21 10:22 AW (Rec: 11/25/21 11:10 AW [id number]) Orientation Orientation/Cognition Level of Alertness Alert Orientation Name,Day of Week,Place, Situation Language Function Ability No Deficits Noted Safety Awareness Understands Safety Issues Memory Description No Deficits Noted Gross Range of Motion Lower Extremity ROM Assessment Within Functional Limits Strength Lower Extremity Strength Assessment Bilaterally Impaired Comments Strength Comments Grossly 4/5 BLE Sensation Assessment Sensation Gross Sensation WNL Muscle Tone Muscle Tone WNL Yes M6 PT-IP Treatment Start: 11/25/21 09:03 Freq: NEEDED Status: Active Protocol: Document 11/26/21 15:23 [place] (Rec: 11/26/21 15:45 [place] [id number]) Physical Therapy Treatment Exercises Exercises Ankle Pumps,Gluteal Sets,Quad Sets,Heel Slides Education Education Provided Precautions,Weight Bearing Status,Post-Op Packet,Safety Other Treatments Other Treatment Performed Calf stretch. Pt recall 3/3 spinal precautions. M7 PT-IP Assessment and Plan Start: 11/25/21 09:03 Freq: NEEDED Status: Active Protocol: Document 11/26/21 15:23 [facility] (Rec: 11/26/21 15:45 [facility] [id number]) PT Summary Assessment and Plan Potential Rehabilitation Potential Good Status of Condition at Evaluation Evolving Summary Impairments Pain,ROM,Strength,Balance,Bed Mobility,Transfers,Gait, Activity Tolerance Progress Towards Goals Progressing Toward Goals,Slow Progress due to Pain,Slow Progress due to Activity Tolerance Assessment Summary Pt able to ambulate ~35 ft w/ FWW today, but continues to be limited by pain, weakness, and SOB. She desat to 84% on 2 .5L following ambulation but was able to recover to mid 90s quickly. Pt refused further ambulation due to pain and fatigue. Due to weakness and low activity tolerance as well as need for bed mobility assistance, pt will require SNF to improve. Goals Bed Mobility Goal Standby Assistance Transfer Goal Standby Assistance,Front Wheeled Walker Gait Goal Standby Assistance,Front Wheel Walker Gait Distance 75 Days to Meet Goals 8 Frequency of Treatment Frequency Of Treatment Twice a Day Treatment Plan Physical Therapy Treatment Plan Bed Mobility Training,Transfer Training,Gait Training, Therapeutic Exercise,Balance Retraining,Post Op Education, Discharge Planning,Hot or Cold Pack,Neuromuscular Re-ed Other Recommendations and Next Treatment Assess SaO2 during mobility, Focus progress gait if able, bed mob reassessment assist. Precautions Lumbar Precautions Log Roll,No Twisting,Limit Bending,Lifting Restriction of 10 lbs,Gait Belt above Incisional Area Recommendations To Nursing Amount of Assist Needed 1 Person Assist Discharge Recommendations PT Discharge Recommendations SNF Rehab Transportation Needs at Discharge Private Vehicle,Wheelchair/ Cabulance
[2021-11-26 17:30] VITALS: BP 124/64; PULSE 89; RESP 26; TEMP 36.1; O2SAT 86; O2SAT 94
[2021-11-26 20:00] VITALS: BP 119/81; PULSE 87; RESP 18; TEMP 37.2; O2SAT 98
[2021-11-26] MEDS: SENNOSIDES 8.6 MG TABLET 17.2 MG PO (20:33)
[2021-11-26] MEDS: TIZANIDINE 4 MG TABLET PO (20:34)
[2021-11-26 21:30] VITALS: O2SAT 93
[2021-11-26] MEDS: HYDROMORPHONE 0.5 MG INJ IV (21:50)
[2021-11-27] MEDS: OXYCODONE IR 5 MG TABLET 10 MG PO ×3 (01:53→14:49)
[2021-11-27 06:00] VITALS: BP 125/72; PULSE 77; RESP 22; TEMP 36.4; O2SAT 93
[2021-11-27 08:05] VITALS: BP 116/67; PULSE 84; RESP 27; TEMP 36.9; O2SAT 91
--- NOTE | 2021-11-27 08:30 | PT.IPTN ---
Current Diagnoses Spondylolisthesis, lumbar region (11/24/21) Spinal stenosis, lumbar region with neurogenic claudication (11/24/21) Surgery Performed Operation Date: 11/24/21 12:15 Actual Procedures p L4-5, L5-S1 TLIF w. posterior instrumentation - Robot - Valdemar Jimenez MD Physical Therapy Treatment Note M2 PT-IP Current Condition Start: 11/25/21 09:03 Freq: NEEDED Status: Active Protocol: Document 11/27/21 08:07 SP (Rec: 11/27/21 09:01 SP [id number]) Physical Therapy Current Condition Current Condition Evaluation Date 11/25/21 Treatment Diagnosis s/p L4-5 L5-S1 TLIF; difficulty in walking Onset Date 11/24/21 M3 PT-IP Subjective Start: 11/25/21 09:03 Freq: NEEDED Status: Active Protocol: Document 11/27/21 08:07 SP (Rec: 11/27/21 09:01 SP [id number]) Subjective Physical Therapy Visit Type Type Treatment Note Visit Start Time 08:07 Visit Stop Time 08:30 Total Visit Minutes 23 Notes SaO2 taken during tx: 92% on 2L at rest pre mobility , 82% on 2L during mobility improved to 88% on 3L with cues breath and slow pacing gait, 90-91% on 2L seated rest end tx. Number of MANUFACTURING MANAGER Visits 4 Physical Therapy Visit Comments Patient Comments Pt agreeable to ambulate. Patient Goals Willing to go to rehab to get stronger before returning home . Therapy Pain Assessment Pain When Pain Assessed During Mobility Pain Present Pain Present Pain Reported Location Lower Back Intensity 3 Scale Used Numeric (0 - 10) Description With Movement Pain Behaviors Facial Grimacing Pain Management Techniques Apply Cold,Distraction, Modification of Treatment,Re- positioning,Timing of Activity with Medications M4 PT-IP Mobility and Gait Start: 11/25/21 09:03 Freq: NEEDED Status: Active Protocol: Document 11/27/21 08:07 SP (Rec: 11/27/21 09:01 SP [id number]) PT-Bed Mobility Assessment Rolling Type of Rolling Log Rolling,Roll to Right Level of Assist Standby Assistance Supine to Sit Supine to Sit Contact Guard Assistance,1 Person Assistance,Bedrails Scooting Scooting to Edge of Bed Standby Assistance PT-Transfer Assessment Sit to and From Stand Sit to and from Stand Standby Assistance,Use of Upper Extremities Equipment Transfer Assistive Device Gait Belt,Front Wheeled Walker Orthotic/Prosthetic Devices or Brace: No Transfers Transfer Destination Chair Transfer Technique Pt ambulated w/ FWW Transfer Ability Level of Assist Standby Assistance,Use of Upper Extremities Comments Mobility Comments See SaO2 stats during tx. Pt seated EOB when arrived, nursing in room. Sit>R SL> supine SBA/ supine> LR R>sit w / use bed rail CGA for safety little unsteady coming to sit (MANUFACTURING MANAGER provided strap and assisted placement on LLE for self assist needed). Scoot to EOB SBA. Pt destated 83% on 2L recovered quickly with breath cues. Sit>stand and gait around room w/ FWW SBA (MANUFACTURING MANAGER assisted O2/ oximeter line mgt ) x2 laps with stand rest for breath recovery x3 destat 82% on 2L, improved 88% on 3L and stated rest recovery. Pt returned to chair stand>sit SBA with cues for reach back slow descent. Brief rest, then completed 2 x STS improved quad extension 2nd reps destated 88% on 3L. Pt reported can't do anymore very tired and pain in back and L hamstring. Pt had call light and all needs in reach, provided CP to LB for pain control and set up for brushing teeth and hair mgt accessories. Lowered O2 back to 2L and 92% before left. Pt not back to baseline I with no supplimental O2 and requires CGA at times and cues for breath. She would benefit from continued skilled therapy prior to safe DC home. Gait Assessment Gait Gait Assistance Required: Standby Assistance,1 Person Assist Distance (Feet) 60 Assistive Devices Assistive Device Gait Belt,Front Wheeled Walker Orthotic/Prosthetic Devices or Brace: No Gait Deviations General Gait Pattern Antalgic,Decreased Stride Length,Decreased Feet Clearance Factors Limiting Gait Function Factors Limiting Gait Function Decreased Activity Tolerance, Decreased Strength,Limited Range of Motion,Pain, Respiratory Distress Comments Gait Comments Desat 82% on 2L, 88% on 3L with mobility, recovers 90s rest sitting on 2L. Stair Climbing Assessment Comments Stair Climbing Comments Not assessed. Pt has ramped entry at home. PT-Balance Assessment Sitting Balance and Reactions Static Sitting Balance Ability Good Dynamic Sitting Balance Ability Good Standing Balance and Reactions Static Standing Balance Ability Good Dynamic Standing Balance Ability Fair Device Used FWW Functional Assessments Functional Tests 5 Times Sit to Stand 2x STS 30 sec M5 PT-IP Objective Assessments Start: 11/25/21 09:03 Freq: NEEDED Status: Active Protocol: Document 11/25/21 10:22 AW (Rec: 11/25/21 11:10 AW [id number]) Orientation Orientation/Cognition Level of Alertness Alert Orientation Name,Day of Week,Place, Situation Language Function Ability No Deficits Noted Safety Awareness Understands Safety Issues Memory Description No Deficits Noted Gross Range of Motion Lower Extremity ROM Assessment Within Functional Limits Strength Lower Extremity Strength Assessment Bilaterally Impaired Comments Strength Comments Grossly 4/5 BLE Sensation Assessment Sensation Gross Sensation WNL Muscle Tone Muscle Tone WNL Yes M6 PT-IP Treatment Start: 11/25/21 09:03 Freq: NEEDED Status: Active Protocol: Document 11/27/21 08:07 SP (Rec: 11/27/21 09:01 SP [id number]) Physical Therapy Treatment Education Education Provided Precautions,Weight Bearing Status,Post-Op Packet,Safety Other Treatments Other Treatment Performed Pt recall 3/3 spinal precautions. M7 PT-IP Assessment and Plan Start: 11/25/21 09:03 Freq: NEEDED Status: Active Protocol: Document 11/27/21 08:07 SP (Rec: 11/27/21 09:01 SP [id number]) PT Summary Assessment and Plan Potential Rehabilitation Potential Good Status of Condition at Evaluation Evolving Summary Impairments Pain,ROM,Strength,Balance,Bed Mobility,Transfers,Gait, Activity Tolerance Progress Towards Goals Progressing Toward Goals,Slow Progress due to Pain,Slow Progress due to Activity Tolerance Assessment Summary Pt able to do 60 ft in room 3 stop stand rests, continues be limited by pain L hamstring > LB premedicated this tx. Desats 82%on 2L recovery 88% on 3L and 90s on 2L at rest. CGA bed mob w/ strap LLE for assist in/out bed cant do it itself. SBA around room w/ fWW . fatigue. Due to weakness and low activity tolerance as well as need for bed mobility assistance, pt will require SNF to improve. Goals Bed Mobility Goal Standby Assistance Transfer Goal Standby Assistance,Front Wheeled Walker Gait Goal Standby Assistance,Front Wheel Walker Gait Distance 75 Days to Meet Goals 8 Frequency of Treatment Frequency Of Treatment Twice a Day Treatment Plan Physical Therapy Treatment Plan Bed Mobility Training,Transfer Training,Gait Training, Therapeutic Exercise,Balance Retraining,Post Op Education, Discharge Planning,Hot or Cold Pack,Neuromuscular Re-ed Other Recommendations and Next Treatment Assess SaO2 during mobility, Focus progress gait if able, bed mob reassessment assist. Precautions Lumbar Precautions Log Roll,No Twisting,Limit Bending,Lifting Restriction of 10 lbs,Gait Belt above Incisional Area Recommendations To Nursing Amount of Assist Needed Standby Assistance,1 Person Assist Discharge Recommendations PT Discharge Recommendations SNF Rehab Transportation Needs at Discharge Private Vehicle,Wheelchair/ Cabulance
[2021-11-27] MEDS: DULOXETINE 30 MG CAPSULE PO (08:56)
[2021-11-27] MEDS: FLUTICASONE UMECLIDINIUM VILANTEROL 1 EACH INH (08:56)
[2021-11-27] MEDS: NICOTINE 14 PATCH 14 MG TOP (08:56)
[2021-11-27] MEDS: DOCUSATE 100 MG CAPSULE PO (08:56)
[2021-11-27] MEDS: GABAPENTIN 100 MG CAPSULE PO (08:56)
[2021-11-27] MEDS: SODIUM CHLORIDE 0.9% FLUSH 10 ML IV (08:57)
--- NOTE | 2021-11-27 10:50 | PC.NURSE ---
Addendum entered by Daryn Whitmore R.N. 11/27/21 15:18: 1500- Report called to [facility]. Spoke with Concetta. W/c transport here at 1500. Pt transferred with SBA to w/c. All belongings gathered and sent with pt at time of discharge. Pt left wearing O2 2L NC. DC packet sent with transport staff. Pt left in no distress. Original Note: Spoke with Dr. Izquierdo. Requested clarification of orders for daily IV lasix. Pt does not want to take it. States she didn't notice that it made a difference in her breathing. Dr. Izquierdo states ok to hold this dose.
[2021-11-27 12:01] LABS: COVID19 -Nasal RAPID Negative (Negative)
[2021-11-27 12:05] VITALS: BP 106/70; PULSE 79; RESP 20; TEMP 35.9; O2SAT 93
--- NOTE | 2021-11-27 13:43 | PM.DS.1 ---
History of Present Illness History of Present Illness Date Patient Seen: 11/27/21 Time Patient Seen: 13:43 Chief complaint: Low back pain S/P TLIF Narrative: Patient is complaining of moderate low back pain this afternoon. She notes oxycodone is helping significantly. She was seen by the hospitalist for acute respiratory failure secondary to COPD. She is currently on 2 L of oxygen and a new prescription of Lasix. She states she is doing well. She is an active smoker and is currently on a nicotine patch. She denies any new numbness or tingling. Overall she is feeling well would like to be discharged to SNF today. Discharge Providers Provider Date of admission: 11/24/21 10:14 Discharge Date: 11/27/21 Primary care physician: ALEJANDRINA Hawthorne Consults: 11/18/21 10:56 Consult to Anesthesiology Routine Comment: Consulting Provider: Anesthesiologist Reason for consultation: PAC courtesy re: recent PFTs, PCP visit 11/24/21 10:47 Consult to Respiratory Therapy Evaluate & Treat Comment: Physician Instructions: Evaluate and treat 11/24/21 19:40 Consult to Occupational Therapy Evaluate & Treat Comment: Physician Instructions: Evaluate and treat Consult to Physical Therapy Evaluate & Treat Comment: Physician Instructions: Evaluate and Treat Consult to Respiratory Therapy Evaluate & Treat Comment: Physician Instructions: Evaluate and treat 11/24/21 19:57 Consult to Respiratory Therapy Evaluate & Treat Comment: 61y/o F severe COPD, BMI 42, s/p TLIF Physician Instructions: Evaluate and treat Discharge provider: Awilda Nevarez PA-C Summary Hospital Course Discharge Diagnosis: 1. L5-S1 spondylolisthesis 2. L4-5, L5-S1 spinal stenosis 3. Acute hypoxemic respiratory failure secondary to COPD 4. Active smoker Hospital Course: Operative Date/Time/Diagnoses Date of procedure: 11/24/21 Time of procedure: 12:30 Procedure & Clinicians Procedure: 1. L5-S1 Postero-lateral and posterior interbody fusion 2. L5-S1 interbody cage placement. 3. L4-5 posterolateral fusion 4. L4-5, L5-S1 decompressive laminectomy with bilateral facetecomies 5. L4-5, L5-S1 Posterior segmental instrumentation 6. [place] of bone marrow from iliac crest 7. Utilization of microsurgical technique and operating microscope 8. Utilization of robotic assisted navigation Same procedure as scheduled: Yes Indications: Patient has been having chronic back pain and worsening lumbar radiculopathy. Patient failed multiple conservative management with worsening pain weakness and numbness in her lower extremity.? Patient has been having difficulty performing activity of daily living.? After discussing risks benefits of treatment options, patient elected proceed with surgery. Surgeon: Valdemar Jimenez Cable [employer] Program Director: Awilda Nevarez Click Yes if Unassisted: No Anesthesia Type: General Operative Notes Closure Type: primary Specimen(s): none sent Prosthetic devices, grafts, tissues, transplants, or devices: Globus CREO MIS screws, Rise cages Applied: catheter Estimated Blood Loss (mL): 100 Blood products transfused: none Due to patient's chronic COPD, she was recommended by Anesthesia patient to be admitted to the ICU for close monitoring of respiratory status.? Patient was stable and had no medical or surgical issues throughout entire procedure.? Therapy is consulted to give patient respiratory treatment during hospital stay. Status at Discharge Cognitive/behavioral status at discharge: oriented Functional status at discharge: uses cane/walker Overall status at discharge: patient is progressing back to baseline Exam Vital Signs (past 8 hours): - 11/27/21 06:00 11/27/21 08:05 11/27/21 12:05 Temperature 97.5 F L 98.4 F 96.7 F L Pulse Rate 77 84 79 Respiratory Rate 22 27 H 20 Blood Pressure 125/72 116/67 106/70 Pulse Oximetry 93 91 93 Fraction of Inspired Oxygen 50 Oxygen Delivery Method Nasal Cannula Oxygen Flow Rate 2 Narrative Exam Narrative: Pleasant 61-year-old female, resting comfortably in bed, no acute distress. Dressing is clean, dry, intact. She is currently on 2 L of O2. Bilateral lower extremity: Motor functions are grossly intact, sensation is mildly decreased on the right as compared to the left, patient notes this is her baseline need due to an ankle fracture; calves are soft and nontender to palpation Objective Labs Result Diagrams: 11/25/21 04:40 Labs: Laboratory Results - last 24 hr 11/27/21 11:43 SARS-CoV-2 (PCR) Negative [facility] Medical History Chronic back pain COPD (chronic obstructive pulmonary disease) CRPS (complex regional pain syndrome) Current every day smoker Degenerative joint disease (DJD) of hip Morbid obesity due to excess calories Pacemaker (07/29/17) Rheumatoid arthritis Spondylolisthesis at L5-S1 level Tobacco abuse Surgical History History of ankle surgery (07/2017) History of bilateral tubal ligation History of hip surgery (03/2016) History of shoulder surgery (02/2004) History of total right hip arthroplasty Family History Father Congestive heart failure Mother Cancer Social History household members: friend(s) Smoking Status: Current every day smoker alcohol intake: current Discharge Assessment & Plan Assessment and Plan Assessment: Stable status post lumbar TLIF -acute hypoxemic respiratory failure secondary to COPD, resolving Plan of Treatment: -mobilize with PT. Limit bending, lifting, twisting x6 weeks. Weightbearing as tolerated with front wheel walker -continue with current multimodal pain management -acute respiratory failure is resolving. Patient is currently on 2 L of O2 and a new prescription of Lasix, she will need to follow-up with her primary care provider to wean off of these. -DC to SNF once cleared by PT Discharge Plan Discharge Plan Patient Disposition: SNF Discharge orders & Medications Prescriptions: New acetaminophen 500 mg capsule 500 mg PO Q4H MDD Max 3000 mg per day PRN (Reason: Pain, Mild (1-3)) Qty: 90 0RF docusate sodium 100 mg Capsule 100 mg PO BID PRN (Reason: constipation) Qty: 20 0RF ipratropium-albuterol 0.5 mg-3 mg(2.5 mg base)/3 mL Solution For Nebulization 3 ml inhalation RTQ4HR PRN (Reason: Shortness Of Breath) Qty: 90 0RF nicotine 14 mg/24 hr Patch 24 Hour 14 mg topical DAILY Qty: 28 0RF oxycodone 5 mg Tablet See Rx Instructions .ROUTE .COMPLEX PRN (Reason: Pain, Severe (7-10)) Qty: 42 0RF Rx Instructions: Take 1-2 tablets by mouth every 4 hours as needed for moderate to severe postop pain furosemide [Lasix] 20 mg tablet 20 mg PO DAILY Qty: 30 0RF Continued Trelegy Ellipta 100-62.5-25 mcg Blister With Device 1 inh INHALATION DAILY 0RF tizanidine 4 mg capsule 4 mg PO BEDTIME 0RF gabapentin 100 mg capsule 100 mg PO BID 0RF duloxetine 30 mg capsule,delayed release(DR/EC) 30 mg PO BID 0RF Discontinued ibuprofen 800 mg Tablet 800 mg PO BID 0RF Follow up/Referrals: Isela Martin FNP-C [Primary Care Provider] - Valdemar Jimenez MD [Physician] - 2 Weeks (Postop visit) Discharge Health Status Multidrug resistant organism: No MDRO Diet/Activity/Treatments Diet: Diet as Tolerated Oxygen: 2L O2 as needed, taper off when sating 88-92 on room air Other treatments: Dressing/Wound care: -Keep dressing in place until postoperative follow-up office visit. -Okay to shower. Keep wound out of direct water stream. Can use PressNSeal plastic wrap to protect from shower stream. No soaking or submerging until all the scabs fall off (approximately 6 weeks). -Please call the office if dressing becomes wet, soiled, or saturated. Activities: -Limit bending, lifting, twisting x6 weeks. No deep bending (more than 90 degrees) or twisting at the waist. No lifting > 20 pounds. -Walk frequently. -Weight-bearing as tolerated. Use front wheeled walker, and progress to cane when safe. -Continue with home exercises as directed by your physical therapist. -Ice your incision as needed for pain/inflammation/swelling. Protect your skin with a folded pillowcase. -Incentive Spirometer (breathing device from hospital): 5-10xs every hour while awake for the first 1-2 weeks. Follow-up: -Follow-up with your surgeon or PA in the office in 10-14 days after surgery. -Follow-up with your surgeon 6 weeks postoperatively. Call the office if you have chest pain, shortness of breath, significant swelling that will not resolve with elevating, fever over 101?, significantly worsening pain. [facility]: [phone] Skin/Wound/Dressing Care Report to your healthcare provider any signs of infection, such as:: chills, fever, night sweats, unusual drainage and unusual redness Special Rehabilitation Services Reason for rehabilitation: Post-operative therapy Rehab type: Physical therapy and Occupational therapy Visit Report/Discharge Packet Instructions: DI for Prescription Opioid Use, DI for Transforaminal Lumbar Interbody Fusion Stand Alone Forms: Surgery Discharge Discharge Data Primary Care Provider: Isela Martin VTE Deep Vein Thrombosis/Pulmonary Embolism Present on Admission: Yes
--- NOTE | 2021-11-27 14:01 | CM.DPNOTE ---
DC Note Assisting transportation planner Marian; patient has been discharged and [facility] has accepted for admission today. C19 PCR is updated, PASRR completed and signed. Patient agreeable to plan Faxed completed and signed med list with printed prescriptions to [facility]. Transport arranged for 1500, RN and patient made aware- agreeable to plan Plan: DC to [facility] today via w/c JW
== END 2021-11-27 15:15 | DRG 981 ==
LOC: OR 10:17 → AC 10:17 → ICU 11-25 20:30
PROVIDERS: Emergency Medicine; Internal Medicine; Admitting Provider Orthopaedic Surgery Orthopaedic Surgery of the Spine; PCP Registered Nurse; Referring Provider Orthopaedic Surgery Orthopaedic Surgery of the Spine; Visit Provider Orthopaedic Surgery Orthopaedic Surgery of the Spine
PROC: 0SG30AJ Fusion of Lumbosacral Joint with Interbody Fusion Device, Posterior Approach, Anterior Column, Open Approach (ICD-10-PCS; principal; 2021-11-24 12:15)
DX: J96.22 Acute and chronic respiratory failure with hypercapnia (principal); G92.8 Other toxic encephalopathy; J98.11 Atelectasis; Z68.41 Body mass index [BMI] 40.0-44.9, adult; J96.21 Acute and chronic respiratory failure with hypoxia; M48.07 Spinal stenosis, lumbosacral region; M48.062 Spinal stenosis, lumbar region with neurogenic claudication; M54.16 Radiculopathy, lumbar region; E66.01 Morbid (severe) obesity due to excess calories; T38.0X5A Adverse effect of glucocorticoids and synthetic analogues, initial encounter; J44.9 Chronic obstructive pulmonary disease, unspecified; M43.17 Spondylolisthesis, lumbosacral region; F17.200 Nicotine dependence, unspecified, uncomplicated; Z20.822 Contact with and (suspected) exposure to COVID-19; Z95.0 Presence of cardiac pacemaker
CPT/HCPCS: 36415; 36600; 71045; 72100; 76000; 82805; 85014; 85018; 87635; 94660; 94760; 97110; 97116; 97162; 97166; 97530; 97535; C1776; C9803; C9290; J0171; J0690; J1100; J1170; J1940; J2250; J2405; J2704; J3010; J3410; J7613

== ENCOUNTER → 2024-02-01 10:48 | Outpatient (CLI) | payer MEDICARE, MEDICAID, SELFPAY ==
[2021-11-24 21:15] VITALS: PULSE 74; RESP 20; O2SAT 92
[2021-11-24 22:20] VITALS: BMI 44.6
--- NOTE | 2024-02-01 10:52 | DI.RAD.S_ITS ---
PROCEDURE: [place] JOINT INJECTION LARGE LT INDICATIONS: Unilateral primary osteoarthritis, left hip COMPARISON: [facility], , [place] JOINT INJECTION LARGE LT, 07/30/2021, 11:35. TECHNIQUE: The indications, alternatives, benefits, risks, and complications of the procedure were explained to the patient. Written informed consent was obtained and placed in the chart. The patient was placed in an appropriate position on the fluoroscopy table, and a site was chosen for percutaneous access under fluoroscopic guidance. The site was prepped and draped in a sterile fashion. Local anesthetic was administered using a 1% lidocaine solution. A hypodermic or spinal needle was then used to access the symptomatic joint. Intra-articular location of the needle tip was confirmed by injecting a small amount of contrast, followed by steroid administration. The needle was then withdrawn, and a bandage applied to the puncture site. FINDINGS: Joint injected: Left hip Medications injected: 6 mL of 40 mg/mL Kenalog and 0.5% Ropivacaine mixture. Patient's pain before injection: 5-6 out of 10. Patient's pain after injection: 0 out of 10. Complications: None. IMPRESSION: Successful fluoroscopically guided administration of steroid and anaesthetic solution into the left hip joint. Dictated by: Fortino Soto M.D. on 02/01/2024 at 15:41 Approved by: Fortino Soto M.D. on 02/01/2024 at 15:41
[2024-02-01] MEDS: LIDOCAINE 1% 20 ML INJ (11:50)
[2024-02-01] MEDS: TRIAMCINOLONE 40 MG/ML VIAL INTRA-ARTI (11:51)
[2024-02-01] MEDS: ROPIVACAINE 0.5% PF 5 MG/ML 20ML VIAL 20 ML INJ (11:51)
== END ==
PROVIDERS: PCP Registered Nurse; Referring Provider Physician Assistant Surgical; Visit Provider Physician Assistant Surgical
DX: M16.12 Unilateral primary osteoarthritis, left hip (principal)
CPT/HCPCS: 20610; 77002; Q9967